=== PATIENT | female | born 1935 | race Caucasian/White ===

== ENCOUNTER 2017-06-27 17:08 | Emergency (ER) | payer OTHER ==
[~2017-06-27] VITALS: Ht 170.2 cm; Wt 101.6 kg
[~2017-06-27 17:08] MED LIST: AMIODARONE HCL200 MG PO; Apixab PO; CEFDINIR300 MG PO; DIGOXIN250 MCG PO; DILTIAZEM 24HR180 MG PO; JANUVIA50 MG PO; LASIX20 MG PO; LOSARTAN POTASS25 MG PO; METOPROLOL SUCC50 MG PO; OMEPRAZOLE40 MG PO
--- OUTSIDE RECORDS SUMMARY | 2017-06-27 17:11 | XMS REPORT ---
Author Author [facility] Address Unknown Phone Unavailable Care Team Providers Care Algologist Name Role Phone FAITH DYSON Unavailable Unavailable Problems This patient has no known problems. Allergies, Adverse Reactions, Alerts This patient has no known allergies or adverse reactions. Medications This patient has no known medications. Results Test Description Test Time Test Comments Text Results Atomic Results Result Comments CT ABDOMEN/PELVIS WO [place] [id number] Patient Name: EITAN SANCHEZ MR #: [id number] : 1935 Age/Sex: 81/F Req #: [id number] Adm Physician: Ordered by: JOHN ALVA VISUAL LEAD Report #: [id number] Location: ER Room/Bed: Procedure: [id number] CT/CT ABDOMEN/PELVIS WO Exam Date: 02/24/17 Exam Time: 1520 REPORT STATUS: Signed EXAM: CT Abdomen and Pelvis WITHOUT contrast INDICATION: Bloody diarrhea. Abdominal pain. Nausea. COMPARISON: None. TECHNIQUE: Abdomen and pelvis were scanned utilizing a multidetector helical scanner from the lung base to the pubic symphysis without administration of IV contrast. Absence of intravenous contrast decreases sensitivity for detection of focal lesions and vascular pathology. Coronal and sagittal reformations were obtained. Routine protocol was performed. IV CONTRAST: None. ORAL CONTRAST: Gastrografin and water mixture. RADIATION DOSE: Total DLP: 791.61 mGy*cm Estimated effective dose: (DLP x 0.015 x size factor) mSv COMPLICATIONS: None FINDINGS: LINES and TUBES: None. LOWER THORAX: Trace volume bilateral pleural effusions associated with bibasilar subsegmental atelectasis. Mild mitral and aortic valve consultations. HEPATOBILIARY: 1.0 cm low-attenuation lesion in the lateral segment of the left hepatic lobe on image 15 series 2 and a BE further characterized due to lack of contrast, however, most likely benign in etiology. No biliary ductal dilation. GALLBLADDER: No radio-opaque stones or sludge. No wall thickening. Note is made of a phrygian cap. SPLEEN: No splenomegaly. PANCREAS: No focal masses or ductal dilatation. ADRENALS: No adrenal nodules KIDNEYS/URETERS: No hydronephrosis. No cystic or solid mass lesions. No stones. GI TRACT: No abnormal distention, wall thickening, or evidence of bowel obstruction. There are a few tiny scattered colonic diverticula without CT evidence of diverticulitis. The appendix is not visualized. PELVIC ORGANS/BLADDER: Status post hysterectomy. Cherry catheter within the decompressed urinary bladder. LYMPH NODES: No lymphadenopathy. VESSELS: Atherosclerotic calcifications of the aorta and iliac arteries without aneurysmal dilatation. PERITONEUM / RETROPERITONEUM: No free air or fluid. BONES: Degenerative changes of the lower thoracic spine. 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 Slight anterolisthesis of L4 in relation to L5 1 without spondylolysis. SOFT TISSUES: Small fat-containing umbilical hernia. IMPRESSION: 1. No acute abdominal pelvic abnormality. 2. Small fat- containing umbilical hernia. 3. Status post hysterectomy. Signed by: Dr. Ginette Handy M.D. on 02/24/2017 5:28 PM Dictated By: DOTTY HANDY MD, MD 27 Transcribed By: SHAWN on 02/24/171727 COPY TO: JOHN ALVA VISUAL LEAD CHEST SINGLE (PORTABLE) [place] [address] Patient Name: EITAN SANCHEZ MR #: [id number] : 1935 Age/Sex: 81/F Req #: [id number] Adm Physician: Ordered by: FAITH DYSON MD Report #: [id number] Location: ER Room/Bed: Procedure: [id number] DX/CHEST SINGLE (PORTABLE) Exam Date: 02/24/17 Exam Time: 1330 REPORT STATUS: Signed PROCEDURE: A single AP view of the chest. COMPARISON: Patients [facility], DX, CHEST SINGLE (PORTABLE), 02/27/2016, 12:45. INDICATIONS: BLOOD IN STOOL, BRIGHT RED FINDINGS: Lines/tubes: None. Lungs: The mild diffuse coarsening of the pulmonary interstitium bilaterally. Mild prominence of the pulmonary vascular tree may be part related to portable technique. There is no evidence of pneumonia or pulmonary edema. Pleura : There is no pleural effusion or pneumothorax. Heart and mediastinum: The cardiac silhouette is moderately enlarged. Calcifications of the aortic arch. Post traumatic deformity of the proximal left humerus and glenohumeral join is stable. Bones: No acute bony abnormality. IMPRESSION: 1. Cardiomegaly. No pulmonary edema. Ginette Handy M.D. Dictated by: Ginette Handy M.D. on 02/24/2017 at 14:11 Electronically approved by: Ginette Handy M.D. on 02/24/2017 at 14: 11 Dictated By: DOTTY HANDY MD, MD 10 Transcribed By: VLADIMIR on 02/24/171410 COPY TO: FAITH DYSON MD
[2017-06-27] MEDS ORDERED: HYDROCODONE/APAP 5MG-325MG TAB PO ONE (17:30)
--- NOTE | 2017-06-27 18:13 | Diagnostic Imaging Report ---
Exams: Head and cervical spine CTs without IV contrast History: Fall, pain Comparison studies: None Technique: Axial images were obtained from the brain and cervical spine. Coronal and sagittal images reconstructed from the axial data. Intravenous contrast: None Findings: Head CT: Scalp: No abnormalities. Bones: No fractures, blastic or lytic lesions. Extra-axial spaces: No masses. No fluid collections. Brain sulci: Mildly prominent Ventricles: Mild compensatory dilatation. No hydrocephalus. Parenchyma: No mass, acute hemorrhage or acute cortical vascular insults. Confluent hypodensity throughout the supratentorial white matter is nonspecific but most compatible with chronic small vessel ischemic changes. Small chronic lacunar infarct in the right globe is pallidus. Sellar/suprasellar region: No abnormalities. Craniocervical junction: The foramen magnum is patent. No Chiari one malformation. Cervical spine CT: Fractures: None. Soft tissues: No gross acute abnormalities. Atlantoaxial articulation: Intact. Alignment: Mild anterolisthesis of C4 on C5 is most likely degenerative in etiology. No additional subluxations. Cervicomedullary junction: No abnormalities. The foramen magnum is patent. Vertebrae: No infection or neoplasm. Degenerative changes: Moderately degenerated C5-C6 and C6-C7 discs with disc osteophyte complexes which indent the thecal sac and result in mild canal stenosis at C5-C6. Multilevel advanced facet arthrosis, worse/severe on the left at C3-C4 and at C4-C5. Multilevel foraminal stenosis due to uncovertebral and facet arthrosis (moderate left and mild right at C3-C4, severe left and mild right C4-C5 moderate bilaterally at C5-C6 and mild bilaterally at C6-C7). Incidental findings: * Right lens replacement related to previous cataract surgery. * Calcified intracranial atherosclerosis with hard plaque in the cervical carotid bulbs as well as within the carotid siphons and intradural V4 segments of the vertebral arteries. * Enlarged nodular thyroid gland. Recommend correlation with thyroid function testing. Thyroid ultrasound may further evaluate as clinically warranted. IMPRESSION: Head CT: 1. No acute abnormalities. 2. Mild generalized volume loss. 3. Moderate chronic microvascular ischemic changes. 4. Chronic lacunar infarct in the right globus pallidus. Cervical spine CT: 1. No cervical spine fracture or acute subluxations. 2. Degenerative changes as described. 3. Incidental findings as described. 4. Cannot adequately evaluate ligament, spinal cord and or vascular abnormalities on the basis of this examination. Signed by: Dr. Favian Sethi M.D. on 06/27/2017 6:10 PM
--- NOTE | 2017-06-27 18:44 | Diagnostic Imaging Report ---
EXAM: CT Chest WITHOUT contrast INDICATION: \S\r/o fx \[id number] \S\1730 COMPARISON: None TECHNIQUE: Chest was scanned utilizing a multidetector helical scanner from the lung apex through the level of the adrenal glands without administration of IV contrast. Absence of intravenous contrast decreases sensitivity for detection of lymphadenopathy and vascular pathology. Coronal and sagittal reformations were obtained. Routine protocol was performed. IV CONTRAST: None COMPLICATIONS: None RADIATION DOSE: Total DLP: 596.43 mGy*cm Estimated effective dose: (DLP x 0.014 x size factor) mSv CTDIvol has been reviewed. It is below the limits set by the Radiation Protocol Committee (RPC). FINDINGS: LINES/ TUBES: None. LUNGS AND AIRWAYS: The lungs are unremarkable. Airways are normal. PLEURA: Small right and possible trace left pleural effusions. HEART AND MEDIASTINUM: Enlarged thyroid gland with hyperdense right inferior pole nodule. No mediastinal, hilar or axillary lymphadenopathy. The heart is enlarged. There is no pericardial effusion. Main pulmonary artery measures 3.3 cm, suggestive of pulmonary hypertension. Atherosclerotic calcification of coronary arteries, aortic valve, and mitral valve. UPPER ABDOMEN: Hyperdense liver. Left hepatic lobe hypodensity. BONES: Degenerative changes of thoracic spine. No evidence of displaced rib fracture. Severe degenerative changes of left glenohumeral joint with deformity of left humeral head. SOFT TISSUES: Unremarkable. IMPRESSION: No evidence of displaced rib fracture. Small right and possible trace left pleural effusions with adjacent compressive atelectasis. Enlarged heterogeneous thyroid gland can be further evaluated with nonurgent thyroid ultrasound. Cardiomegaly. Signed by: Dr. Haider Terry MD on 06/27/2017 6:40 PM
[2017-06-27 18:50] VITALS: BP 169/65
== END 2017-06-27 19:05 | disposition home or self-care (01) ==
LOC: ER 17:08
DX: G89.11 Acute pain due to trauma (principal); S00.83XA Contusion of other part of head, initial encounter; M54.6 Pain in thoracic spine; S23.3XXA Sprain of ligaments of thoracic spine, initial encounter; W07.XXXA Fall from chair, initial encounter; Y92.488 Other paved roadways as the place of occurrence of the external cause; E11.9 Type 2 diabetes mellitus without complications; N28.9 Disorder of kidney and ureter, unspecified; I48.91 Unspecified atrial fibrillation; I50.9 Heart failure, unspecified
CPT/HCPCS: 70450; 71250; 72125; 99284

== ENCOUNTER 2017-06-29 08:26 | Observation (INO) | payer OTHER ==
[~2017-06-29] VITALS: Ht 170.2 cm; Wt 102.6 kg
--- OUTSIDE RECORDS SUMMARY | 2017-06-29 08:29 | XMS REPORT | Continuity of Care Document ---
Author Author [facility] Organization [facility] Address [address] [place] [address] Phone Unavailable Care Team Providers Care Grain Farmer Name Role Phone SUSAN RIDLEY MD PCP Insurance Providers Guarantor Abby Sanchez Address [address] [place] [address] Payer [facility] [employer] Policy Number [id number] Subscriber's Name Abby Sanchez Relationship 18 Self / Same As Patient Group Number [id number] Group Name [employer] - Medicare Advantage Divis Effective Date 17 Advance Directives Directive Response Recorded Date/Time Does the patient have an advance directive? No 02/24/17 11:56pm If yes, is advance directive on file with [facility]? No 02/24/17 11:56pm If not on file with [facility] will patient provide a copy? No 02/24/17 11:56pm Do you have a Directive to Physician? No 06/27/17 6:58pm Do you have a Medical Power of Advertising Specialist? No 06/27/17 6:58pm Do you have an out of hospital Do Not Resuscitate Order? No 06/27/17 6:58pm Do you have any special needs we should be aware of? No 06/27/17 6:58pm Do you have a support person here with you today? Yes 06/27/17 6:58pm Did patient receive Notice of Privacy Practices? Yes 06/27/17 6:58pm Did patient receive patient rights and responsibilities? Yes 06/27/17 6:58pm Problems Medical Problem Onset Date Status CHF (congestive heart failure) Unknown Dehydration Unknown UTI (urinary tract infection) Unknown Medications Current Home Medications Medication Dose Units Route Directions Days Qty Instructions Start Date Amiodarone Hcl 200 Mg Tablet 200 Mg Oral Twice A Day Apixab 2.5 Mg Tablet 2.5 Mg Oral Twice A Day 30 Days 60 01/25/16 Diltiazem Hcl (Diltiazem 24HR Er) 180 Mg Capcr 240 Mg Oral Daily Furosemide (Lasix) 20 Mg Tablet 20 Mg Oral Daily 30 Tab Sitagliptin Phosphate (Januvia) 50 Mg Tablet 50 Mg Oral Daily Past Home Medications Medication Directions Ordered Status Cefdinir (Omnicef) 300 Mg Capsule, 1 Cap Oral Twice A Day 03/01/16 Discontinued Cefdinir (Omnicef) 300 Mg Capsule, 300 Mg Oral Twice A Day 01/25/16 Discontinued Digoxin 250 Mcg Tablet, 250 Mcg Oral Daily Discontinued Losartan Potassium 25 Mg Tablet, 50 Mg Oral Daily Discontinued Metoprolol Succinate 50 Mg Tab.er.24h, 50 Mg Oral Three Times A Day Discontinued Metoprolol Succinate 50 Mg Tab.er.24h, 100 Mg Oral Daily 01/25/16 Discontinued Metoprolol Succinate 50 Mg Tab.er.24h, 50 Mg Oral Daily Discontinued Omeprazole 40 Mg Capsule.dr, 40 Mg Oral Daily 01/25/16 Discontinued Social History Social History Problem Response Recorded Date/Time Onset Date Status Hx Psychiatric Problems No 02/24/2017 11:56pm Not Applicable Not Applicable Hx Eating Disorder No 02/24/2017 11:56pm Not Applicable Not Applicable Hx Substance Use Disorder No 02/24/2017 11:56pm Not Applicable Not Applicable Hx Depression No 02/24/2017 11:56pm Not Applicable Not Applicable Hx Alcohol Use No 02/24/2017 11:56pm Not Applicable Not Applicable Hx Substance Use Treatment No 02/24/2017 11:56pm Not Applicable Not Applicable Hx Physical Abuse No 02/24/2017 11:56pm Not Applicable Not Applicable Smoking Status Start Date Stop Date Never Smoker Hospital Discharge Instructions No hospital discharge instruction information available. Plan of Care Discharge Date 06/27/17 7:05pm Disposition HOME, SELF-CARE Condition at Discharge Stable Instructions/Education Provided Back Pain Forms Provided Work/School Excuse Prescriptions See Medication Section Referrals SUSAN RIDLEY MD Address: [address] [place] [address] YVON MITCHELL MD Address: [address] [place] [address] [address] [place] [address] Additional Instructions/Education 1. follow up with your doctor in 1-2 days without fail 2. return to ed as needed 3. tylenol and motrin as needed for pain Functional Status No functional status information available. Allergies, Adverse Reactions, Alerts Allergen Type Severity Reaction Status Last Updated No Known Drug Allergies Allergy Mild Active 06/27/17 Immunizations No immunization information available. Vital Signs Acute Vital Signs Vital Response Date/Time Temperature (Fahrenheit) 98.0 degrees F (97.6 - 99.5) 06/27/2017 6:50pm Pulse Pulse Rate (adult) 72 bpm (60 - 90) 06/27/2017 6:50pm Respiratory Rate 15 bpm (12 - 24) 06/27/2017 6:50pm Blood Pressure 169/65 mm Hg 06/27/2017 6:50pm Height 5 ft 7 in 06/27/2017 5:20pm Weight 224 lb 06/27/2017 5:20pm Body Mass Index 35.1 kg/m^2 06/27/2017 5:20pm Results Laboratory Results Test Name Result Units Flags Reference Collection Date/Time Result Date/ Time Comments White Blood Count 6.91 x10e3/uL 4.8-10.8 02/25/2017 6:00am 02/25/2017 6 :56am Red Blood Count 3.14 x10e6/uL L 3.6-5.1 02/25/2017 6:00am 02/25/2017 6: 56am Hemoglobin 9.3 g/dL L 12.0-16.0 02/25/2017 6:00am 02/25/2017 6:56am Hematocrit 29.7 % L 34.2-44.1 02/25/2017 6:00am 02/25/2017 6:56am Mean Corpuscular Volume 94.6 fL 81-99 02/25/2017 6:00am 02/25/2017 6: 56am Mean Corpuscular Hemoglobin 29.6 pg 28-32 02/25/2017 6:00am 02/25/2017 6:56am Mean Corpuscular Hemoglobin Concent 31.3 g/dL 31-35 02/25/2017 6:00am 02/25/2017 6:56am Red Cell Distribution Width 14.9 % H 11.7-14.4 02/25/2017 6:00am 2016 6:56am Platelet Count 202 x10e3/uL 140-360 02/25/2017 6:00am 02/25/2017 6: 56am Neutrophils (%) (Auto) 68.7 % 38.7-80.0 02/25/2017 6:00am 02/25/2017 6: 56am Lymphocytes (%) (Auto) 18.7 % 18.0-39.1 02/25/2017 6:00am 02/25/2017 6: 56am Monocytes (%) (Auto) 9.3 % 4.4-11.3 02/25/2017 6:00am 02/25/2017 6: 56am Eosinophils (%) (Auto) 2.5 % 0.0-6.0 02/25/2017 6:00am 02/25/2017 6: 56am Basophils (%) (Auto) 0.4 % 0.0-1.0 02/25/2017 6:00am 02/25/2017 6:56am IM GRANULOCYTES % 0.4 % 0.0-1.0 02/25/2017 6:00am 02/25/2017 6:56am Neutrophils # (Auto) 4.8 2.1-6.9 02/25/2017 6:00am 02/25/2017 6:56am Lymphocytes # (Auto) 1.3 1.0-3.2 02/25/2017 6:00am 02/25/2017 6:56am Monocytes # (Auto) 0.6 0.2-0.8 02/25/2017 6:00am 02/25/2017 6:56am Eosinophils # (Auto) 0.2 0.0-0.4 02/25/2017 6:00am 02/25/2017 6:56am Basophils # (Auto) 0.0 0.0-0.1 02/25/2017 6:00am 02/25/2017 6:56am Absolute Immature Granulocyte (auto 0.03 x10e3/uL 0-0.1 02/25/2017 6: 00am 02/25/2017 6:56am Prothrombin Time 14.4 seconds 11.9-14.5 02/24/2017 1:13pm 02/24/2017 1: 58pm Prothromb Time International Ratio 1.06 02/24/2017 1:13pm 2016 1:58pm Oral Anticoagulant Therapy INR Values: 1. Low Intensity Therapy 1.5 - 2.0 2. Moderate Intensity Therapy 2.0 - 3.0 3. High Intensity Therapy(1) 2.5 - 3.5 4. High Intensity Therapy(2) 3.0 - 4.0 5. Panic Value INR > 5.0 Activated Partial Thromboplast Time 31.3 seconds 23.8-35.5 02/24/2017 1: 13pm 02/24/2017 1:58pm Urine Color YELLOW YELLOW 02/24/2017 1:02/24/2017 3:25pm Urine Clarity CLEAR CLEAR 02/24/2017 1:02/24/2017 3:25pm Urine Specific [place] 1.010 1.010-1.025 02/24/2017 1:2016 3:25pm Urine pH 7 5 - 7 02/24/2017 1:02/24/2017 3:25pm Urine Leukocyte Esterase TRACE H NEGATIVE 02/24/2017 1:2016 3:25pm Urine Nitrite NEGATIVE NEGATIVE 02/24/2017 1:02/24/2017 3:25pm Urine Protein 3+ H NEGATIVE 02/24/2017 1:02/24/2017 3:25pm Urine Glucose (UA) NEGATIVE NEGATIVE 02/24/2017 1:02/24/2017 3: 25pm Urine Ketones NEGATIVE NEGATIVE 02/24/2017 1:02/24/2017 3:25pm Urine Urobilinogen 0.2 mg/dL 0.2 - 1 02/24/2017 1:02/24/2017 3: 25pm Urine Bilirubin NEGATIVE NEGATIVE 02/24/2017 1:02/24/2017 3: 25pm Urine Blood NEGATIVE NEGATIVE 02/24/2017 1:02/24/2017 3:25pm Urine WBC 11-20 /HPF H 0-5 02/24/2017 1:1302/24/2017 3:32pm Urine RBC 0-5 /HPF 0-5 02/24/2017 1:02/24/2017 3:32pm Urine Bacteria NONE /HPF NONE 02/24/2017 1:1302/24/2017 3:32pm Urine Epithelial Cells FEW /LPF NONE 02/24/2017 1:02/24/2017 3: 32pm Urine Hyaline Casts 0-1 0-1 02/24/2017 1:02/24/2017 3:32pm Sodium Level 143 mmol/L 136-145 02/25/2017 6:00am 02/25/2017 6:59am Potassium Level 4.2 mmol/L 3.5-5.1 02/25/2017 6:00am 02/25/2017 6:59am Chloride Level 111 mmol/L H 98-107 02/25/2017 6:00am 02/25/2017 6:59am Carbon Dioxide Level 26 mmol/L 22-29 02/25/2017 6:00am 02/25/2017 6: 59am Anion Gap 10.2 mmol/L 8-02/25/2017 6:00am 02/25/2017 6:59am Blood Urea Nitrogen 19 mg/dL 7-02/25/2017 6:00am 02/25/2017 6:59am Creatinine 1.79 mg/dL H 0.57-1.11 02/25/2017 6:00am 02/25/2017 6:59am BUN/Creatinine Ratio 11 6-02/25/2017 6:00am 02/25/2017 6:59am Estimat Glomerular Filtration Rate 27 ML/MIN L 60- 02/25/2017 6:00am 6:59am Ranges were taken from the National Kidney Disease Education Program and the National Kidney Foundation literature. Reference ranges: 60 or greater: Normal 16-59 (for 3 consecutive months): Chronic kidney disease 15 or less: Kidney failure Glucose Level 108 mg/dL 74-118 02/25/2017 6:00am 02/25/2017 6:59am Calcium Level 8.1 mg/dL L 8.4-10.2 02/25/2017 6:00am 02/25/2017 6:59am Bedside Glucose 197 mg/dL H 70-120 02/27/2017 8:33pm 02/27/2017 8:50pm Meter ID: [id number] Hemoglobin A1c Percent 6.2 % 4.0-7.0 02/25/2017 6:00am 02/25/2017 9: 21am Iron Level 35 ug/dL L 50-170 02/25/2017 6:00am 02/25/2017 9:58am Total Iron Binding Capacity 227 ug/dL L 261-478 02/25/2017 6:00am 2016 9:58am Percent Iron Saturation 15 % 15-50 02/25/2017 6:00am 02/25/2017 9:58am Transferrin 162 mg/dL L 180-382 02/25/2017 6:00am 02/25/2017 9:58am Total Bilirubin 0.3 mg/dL 0.2-1.2 02/24/2017 1:13pm 02/24/2017 2:07pm Aspartate Amino Transf (AST/SGOT) 24 IU/L 5-34 02/24/2017 1:2016 2:07pm Alanine Aminotransferase (ALT/SGPT) 22 IU/L 0-55 02/24/2017 1:13pm 2:07pm Total Protein 7.1 g/dL 6.5-8.1 02/24/2017 1:02/24/2017 2:07pm Albumin 3.0 g/dL L 3.5-5.0 02/24/2017 1:02/24/2017 2:07pm Globulin 4.1 g/dL H 2.3-3.5 02/24/2017 1:02/24/2017 2:07pm Albumin/Globulin Ratio 0.7 L 0.8-2.0 02/24/2017 1:02/24/2017 2: 07pm Alkaline Phosphatase 126 IU/L 40-150 02/24/2017 1:02/24/2017 2: 07pm B-Type Natriuretic Peptide 488.6 pg/mL H 0-100 02/24/2017 1:2016 2:22pm Creatine Kinase 28 IU/L L 29-168 02/24/2017 1:02/24/2017 2:07pm Creatine Kinase MB 0.80 ng/mL 0.00-5.00 02/24/2017 1:13pm 02/24/2017 2: 10pm Troponin I 0.025 ng/mL 0-0.300 02/24/2017 1:13pm 02/24/2017 2:10pm Vitamin B12 Level 142 pg/mL L 213-816 02/25/2017 6:00am 02/25/2017 10: 35am Thyroid Stimulating Hormone (TSH) 3.609 uIU/mL 0.350-4.940 02/25/2017 6: 00am 02/25/2017 10:08am Microbiology Results Procedure Source Organism/Result Collection Date/Time Result Date/Time Result Status Urine Culture Urine,Catheterized PROTEUS MIRABILIS 02/24/2017 1:13pm 02/27 8:30am Final Procedures Procedure Status Date Provider(s) EGD BIOPSY SINGLE/MULTIPLE Completed 02/24/[address] of abdomen and pelvis without contrast Active 02/24/17 JOHN ALVA NP Computed tomography of chest without contrast Active 06/27/17 GONZALO BLEVINS NP Computed tomography of cervical spine without contrast Active 06/27/17 GONZALO BLEVINS NP Computed tomography of brain without radiopaque contrast Active 06/27/17 GONZALO BLEVINS NP Encounters Encounter Location Arrival/Admit Date Discharge/Depart Date Attending Provider Departed Emergency Room [facility] 06/27/17 5:08pm 7:05pm FAITH DYSON MD Discharged Inpatient (obs) [facility] 02/24/17 7:41pm 10:00pm TANYA AMBROCIO MD
[2017-06-29] MEDS ORDERED: NYSTATIN 15 GM POWDER UD BTL TOP PRN (09:15)
[2017-06-29 09:20] LABS: BASOPHILS # (AUTO) 0.1 (0.0-0.1); BASOPHILS % 0.5 % (0.0-1.0); EOSINOPHILS # (AUTO) 0.2 (0.0-0.4); EOSINOPHILS % 2.1 % (0.0-6.0); HEMATOCRIT 33.9 % (34.2-44.1); HEMOGLOBIN 10.7 g/dL (12.0-16.0); LYMPHOCYTES # (AUTO) 1.4 (1.0-3.2); LYMPHOCYTES % 15.1 % (18.0-39.1); MEAN CORPUSCULAR HEMOGLOBIN 29.2 pg (28-32); MEAN CORPUSCULAR HGB CONC 31.6 g/dL (31-35); MEAN CORPUSCULAR VOLUME 92.6 fL (81-99); MONOCYTES # (AUTO) 0.8 (0.2-0.8); MONOCYTES % 8.7 % (4.4-11.3); NEUTROPHILS # (AUTO) 6.7 (2.1-6.9); NEUTROPHILS % 73.3 % (38.7-80.0); PLATELET COUNT 242 x10e3/uL (140-360); RED BLOOD COUNT 3.66 x10e6/uL (3.6-5.1)
[2017-06-29 09:21] LABS: BILIRUBIN,URINE NEGATIVE (NEGATIVE); KETONES,URINE NEGATIVE (NEGATIVE); LEUKOCYTE ESTERASE ,URINE TRACE (NEGATIVE); PROTEIN,URINE DIPSTICK 3+ (NEGATIVE); URINE UROBILINOGEN 0.2 mg/dL (0.2 - 1)
[2017-06-29 09:22] LABS: CLARITY,URINE CLOUDY (CLEAR); COLOR,URINE YELLOW (YELLOW); NITRITE,URINE POSITIVE (NEGATIVE)
[2017-06-29 09:25] LABS: INR 1.21; PARTIAL THROMBOPLASTIN TIME 32.1 seconds (23.8-35.5); PROTHROMBIN TIME 14.4 seconds (11.9-14.5)
[2017-06-29 09:34] LABS: ALBUMIN 2.7 g/dL (3.5-5.0); ALBUMIN/GLOBULIN RATIO 0.6 (0.8-2.0); CALCIUM 8.9 mg/dL (8.4-10.2); CREATININE, SERUM 2.01 mg/dL (0.57-1.11)
[2017-06-29 09:40] LABS: CREATINE KINASE MB 1.1 ng/mL (0-5.0)
[2017-06-29 09:41] LABS: BACTERIA,URINE MODERATE /HPF; EPITHELIAL CELLS,URINE RARE /LPF; RBC,URINE 0-5 /HPF (0-5)
[2017-06-29] MEDS ORDERED: KETOROLAC TROMETHAMINE 30 MG/ML VIAL IV STA (09:50)
[2017-06-29] MEDS ORDERED: FLUCONAZOLE 200 MG/100 ML 100 ML IV ONE (10:00)
[2017-06-29] MEDS ORDERED: CEFTRIAXONE SOD 1 GM VIAL IV ONE (11:00)
[2017-06-29] MEDS ORDERED: ONDANSETRON HCL INJ 2 MG/ML VIAL ONE (11:13)
[2017-06-29] MEDS ORDERED: METOCLOPRAMIDE HCL 10 MG/2ML VIAL IV ONE (11:15)
[2017-06-29] MEDS ORDERED: ONDANSETRON HCL INJ 2 MG/ML VIAL IV STA (11:20)
--- NOTE | 2017-06-29 11:23 | Diagnostic Imaging Report ---
PROCEDURE:THORACIC SP 3V COMPARISON:None. INDICATIONS:FELL ON BACK ONTO CONCRETE FINDINGS:No acute displaced fracture or dislocation. No degenerative changes or evidence by diffuse osteophytosis. The disc spaces are well-maintained. CONCLUSION:No acute radiographic abnormality. Dictated by: Selwyn Hernandez M.D. on 06/29/2017 at 11:23 Electronically approved by: Selwyn Hernandez M.D. on 06/29/2017 at 11:23
--- NOTE | 2017-06-29 11:25 | Diagnostic Imaging Report ---
PROCEDURE:L-SPINE COMPLETE COMPARISON:None. INDICATIONS:FELL ON BACK ONTO CONCRETE FINDINGS: There are 5 lumbar-type vertebral bodies. The vertebral bodies are well-aligned without evidence of spondylolisthesis. There are no fractures, lytic or blastic lesions. Degenerative changes evidenced by anterior osteophytosis at multiple levels. Bilateral facet hypertrophy is present at L4/L5 and L5/S1. The disc-space heights are well-maintained. The sacroiliac joints are unremarkable. CONCLUSION: No acute radiographic abnormality. Degenerative changes as above. Dictated by: Selwyn Hernandez M.D. on 06/29/2017 at 11:25 Electronically approved by: Selwyn Hernandez M.D. on 06/29/2017 at 11:25
--- NOTE | 2017-06-29 11:34 | Diagnostic Imaging Report ---
PROCEDURE:X-RAY UNILATERAL RIBS WITH CHEST X-RAY COMPARISON:CT chest 06/27/2017. INDICATIONS:FELL ON BACK ONTO CONCRETE FINDINGS: Lungs: Bibasilar atelectasis. No focal consolidation. No parenchymal mass. Pleura: Small right pleural effusion. No pneumothorax. Mediastinum: Normal cardiomediastinal silhouette. Atherosclerotic calcifications. Bones: Degenerative changes of the thoracic spine. Remote trauma of the proximal left humerus. No rib fracture is visualized. Soft tissues: Normal CONCLUSION: No acute radiographic abnormality. No rib fracture. Small right pleural effusion. Dictated by: Selwyn Hernandez M.D. on 06/29/2017 at 11:35 Electronically approved by: Selwyn Hernandez M.D. on 06/29/2017 at 11:35
[2017-06-29] MEDS ORDERED: MORPHINE SULFATE 2 MG/ML SYR IV PRN (11:50)
--- NOTE | 2017-06-29 12:01 | Diagnostic Imaging Report ---
PROCEDURE:X-RAY RIGHT HUMERUS, TWO OR MORE VIEWS COMPARISON:None. INDICATIONS:Pain. Fall. FINDINGS: There are no fractures, dislocations, lytic or blastic lesions. The bones are well-mineralized. The soft-tissues are unremarkable. CONCLUSION: No acute radiographic abnormality. Dictated by: Selwyn Hernandez M.D. on 06/29/2017 at 12:01 Electronically approved by: Selwyn Hernandez M.D. on 06/29/2017 at 12:01
[2017-06-29] MEDS: NYSTATIN 15 GM POWDER UD BTL TOP SCH (16:44)
[2017-06-29] MEDS: SODIUM CHLORIDE FLUSH 10 ML SYR INJ PRN (16:44)
[2017-06-29 23:22] VITALS: BP 113/96
[2017-06-30] VITALS (8 sets, daily range): BP systolic 157–196; BP diastolic 56–85
[2017-06-30 07:03] LABS: ANION GAP 10.6 mmol/L (8-16); CALCIUM 8.3 mg/dL (8.4-10.2); CREATININE, SERUM 2.33 mg/dL (0.57-1.11); POTASSIUM 4.6 mmol/L (3.5-5.1)
[2017-06-30 07:29] LABS: BASOPHILS % 0.4 % (0.0-1.0); EOSINOPHILS # (AUTO) 0.2 (0.0-0.4); EOSINOPHILS % 2.5 % (0.0-6.0); HEMATOCRIT 28.9 % (34.2-44.1); HEMOGLOBIN 8.9 g/dL (12.0-16.0); LYMPHOCYTES % 14.8 % (18.0-39.1); MEAN CORPUSCULAR HEMOGLOBIN 29.1 pg (28-32); MEAN CORPUSCULAR HGB CONC 30.8 g/dL (31-35); MEAN CORPUSCULAR VOLUME 94.4 fL (81-99); MONOCYTES # (AUTO) 0.7 (0.2-0.8); MONOCYTES % 9.9 % (4.4-11.3); NEUTROPHILS # (AUTO) 4.9 (2.1-6.9); NEUTROPHILS % 71.7 % (38.7-80.0); PLATELET COUNT 206 x10e3/uL (140-360); RED BLOOD COUNT 3.06 x10e6/uL (3.6-5.1); RED CELL DISTRIBUTION WIDTH 15.2 % (11.7-14.4)
[2017-06-30] MEDS: NYSTATIN 15 GM POWDER UD BTL TOP SCH ×2 (08:36→16:02)
[2017-06-30] MEDS: SODIUM CHLORIDE FLUSH 10 ML SYR INJ PRN (08:36)
[2017-06-30] MEDS ORDERED: CEPHALEXIN 500 MG CAP PO SCH (09:30)
[2017-06-30] MEDS: DILTIAZEM HCL 120 MG CAP CD PO SCH (10:16)
[2017-06-30] MEDS: CEPHALEXIN 500 MG CAP PO SCH ×3 (10:17→21:17)
[2017-06-30] MEDS ORDERED: FLUCONAZOLE 100 MG TAB PO NR (10:30)
[2017-06-30] MEDS ORDERED: HYDROCODONE/APAP 7.5MG-325MG 1 EA TAB PO PRN (11:15)
[2017-06-30] MEDS ORDERED: ONDANSETRON HCL 4 MG ORAL DISINTEGRATING TAB PO ONE (15:15)
[2017-06-30] MEDS ORDERED: HYDRALAZINE HCL 25 MG TAB PO PRN (15:15)
[2017-06-30] MEDS: APIXAB 2.5 MG TABLET PO SCH (16:02)
[2017-06-30] MEDS: AMIODARONE HCL 200 MG TAB PO SCH (16:02)
[2017-06-30] MEDS ORDERED: [UNRECOGNIZED DRUG - OTHER] PO SCH (17:00)
[2017-07-01] VITALS (7 sets, daily range): BP systolic 132–172; BP diastolic 58–99
[2017-07-01] MEDS: CEPHALEXIN 500 MG CAP PO SCH ×2 (05:06→15:20)
[2017-07-01] MEDS: ONDANSETRON HCL 4 MG ORAL DISINTEGRATING TAB PO PRN ×2 (08:20→15:40)
[2017-07-01] MEDS: NYSTATIN 15 GM POWDER UD BTL TOP SCH ×2 (08:27→16:34)
[2017-07-01] MEDS: AMIODARONE HCL 200 MG TAB PO SCH ×2 (08:27→16:34)
[2017-07-01] MEDS: APIXAB 2.5 MG TABLET PO SCH ×2 (08:27→16:34)
[2017-07-01] MEDS: DILTIAZEM HCL 120 MG CAP CD PO SCH (08:27)
[2017-07-01] MEDS ORDERED: SITAGLIPTIN 100 MG TAB PO SCH (09:00)
[2017-07-01] MEDS ORDERED: DILTIAZEM HCL 180 MG CAP CD PO SCH (09:00)
[2017-07-01] MEDS ORDERED: FLUCONAZOLE 100 MG TAB PO SCH (09:00)
[2017-07-01] MEDS ORDERED: NON-FORMULARY MEDICATION (Sitagliptin Phosphate (Januvia) 50 MG) PO SCH (09:00)
[2017-07-01] MEDS ORDERED: FUROSEMIDE 20 MG TAB PO SCH (09:00)
== END 2017-07-01 19:28 | disposition home or self-care (01) ==
LOC: ER 08:26 → ERHOLD 11:45 → IMCU 22:17
PROVIDERS: ADMIT Internal Medicine; ATTEND Internal Medicine
DX: M79.1 Myalgia (principal); M54.89 Other dorsalgia; N30.01 Acute cystitis with hematuria; E11.65 Type 2 diabetes mellitus with hyperglycemia; L30.4 Erythema intertrigo; W05.0XXA Fall from non-moving wheelchair, initial encounter; B37.2 Candidiasis of skin and nail
CPT/HCPCS: 36415 ×3; 51700; 71101; 72072; 72110; 73060; 80048; 80053; 81001; 82550; 82553; 82948 ×3; 83036; 84484; 85025 ×2; 85610; 85730; 93005; 97139; 97162; 97530 ×2; 99284; G0378 ×3; J0696; J1450; J1885; J2270; J2405

== ENCOUNTER 2017-07-29 10:49 | Observation (INO) | payer OTHER ==
[~2017-07-29] VITALS: Ht 170.2 cm; Wt 98.9 kg
--- OUTSIDE RECORDS SUMMARY | 2017-07-29 10:53 | XMS REPORT | Continuity of Care Document ---
Author Author [facility] Organization [facility] Address [address] [address] Phone Unavailable Care Team Providers Care Slate Handler Name Role Phone SUSAN RIDLEY MD PCP Insurance Providers Guarantor ChasityhéctorAbby Soledad Address [address] [place] [address] Email PT DECLINED Payer [facility] Tomo Clases Policy Number [id number] Subscriber's Name Abby Mixon Soledad Relationship 18 Self / Same As Patient Group Number [id number] Group Name [employer] - Medicare Advantage Divis Effective Date 17 Advance Directives Directive Response Recorded Date/Time Does the patient have an advance directive? No 06/29/17 11:15pm If yes, is advance directive on file with [facility]? No 06/29/17 11:15pm If not on file with [facility] will patient provide a copy? No 06/29/17 11:15pm Do you have a Directive to Physician? No 06/29/17 9:39am Do you have a Medical Power of Chairman And Ceo? No 06/29/17 9:39am Do you have an out of hospital Do Not Resuscitate Order? No 06/29/17 9:39am Do you have any special needs we should be aware of? No 06/29/17 9:39am Do you have a support person here with you today? Yes 06/29/17 9:39am Did patient receive Notice of Privacy Practices? Yes 06/29/17 9:39am Did patient receive patient rights and responsibilities? Yes 06/29/17 9:39am Problems Medical Problem Onset Date Status CHF (congestive heart failure) Unknown Dehydration Unknown Intertrigo Unknown UTI (urinary tract infection) Unknown Medications [...] Onset Date Status Hx Psychiatric Problems No 06/29/2017 11:15pm Not Applicable Not Applicable Hx Eating Disorder No 06/29/2017 11:15pm Not Applicable Not Applicable Hx Substance Use Disorder No 06/29/2017 11:15pm Not Applicable Not Applicable Hx Depression No 06/29/2017 11:15pm Not Applicable Not Applicable Hx Alcohol Use No 06/29/2017 11:15pm Not Applicable Not Applicable Hx Substance Use Treatment No 06/29/2017 11:15pm Not Applicable Not Applicable Hx Physical Abuse No 06/29/2017 11:15pm Not Applicable Not Applicable Smoking Status Start Date Stop Date Never Smoker Hospital Discharge Instructions No hospital discharge instruction information available. Plan of Care Discharge Date 07/01/17 7:28pm Disposition HOME, SELF-CARE Instructions/Education Provided Urinary Tract Infection - Women Prescriptions See Medication Section Additional Instructions/Education FOLLOW UP WITH PCP IN 1 WEEK Functional Status Query Response Date Recorded FUNCTIONAL STATUS . June 30, 2017 11:33am Assistive Devices Standard Walker June 29, 2017 11:22pm Ambulation Ability Moderate Assistance June 29, 2017 11:22pm Toileting Ability Minimum Assistance July 01, 2017 6:26pm Allergies, Adverse Reactions, Alerts Allergen Type Severity Reaction Status Last Updated No Known Drug Allergies Allergy Mild Active 06/27/17 Immunizations No immunization information available. Vital Signs Acute Vital Signs Vital Response Date/Time Temperature (Fahrenheit) 96.8 degrees F (97.6 - 99.5) 07/01/2017 6:55pm Pulse Pulse Rate (adult) 68 bpm (60 - 90) 07/01/2017 6:55pm Respiratory Rate 16 bpm (12 - 24) 07/01/2017 6:55pm Blood Pressure 156/70 mm Hg 07/01/2017 6:55pm Height 5 ft 7 in 06/29/2017 8:32am Weight 226.25 lb 07/01/2017 12:29am Body Mass Index 35.4 kg/m^2 07/01/2017 12:29am Results Laboratory Results Test Name Result Units Flags Reference Collection Date/Time Result Date/ Time Comments Urine Hyaline Casts 0-1 0-1 02/24/2017 1:13pm 02/24/2017 3:32pm Iron Level 35 ug/dL L 50-170 02/25/2017 6:00am 02/25/2017 9:58am Total Iron Binding Capacity 227 ug/dL L 261-478 02/25/2017 6:00am 2016 9:58am Percent Iron Saturation 15 % 15-50 02/25/2017 6:00am 02/25/2017 9:58am Transferrin 162 mg/dL L 180-382 02/25/2017 6:00am 02/25/2017 9:58am B-Type Natriuretic Peptide 488.6 pg/mL H 0-100 02/24/2017 1:13pm 2016 2:22pm Vitamin B12 Level 142 pg/mL L 213-816 02/25/2017 6:00am 02/25/2017 10: 35am Thyroid Stimulating Hormone (TSH) 3.609 uIU/mL 0.350-4.940 02/25/2017 6: 00am 02/25/2017 10:08am White Blood Count 6.84 x10e3/uL 4.8-10.8 06/30/2017 7:06/30/2017 7 :44am Red Blood Count 3.06 x10e6/uL L 3.6-5.1 06/30/2017 7:06/30/2017 7: 44am Hemoglobin 8.9 g/dL L 12.0-16.0 06/30/2017 7:06/30/2017 7:44am Hematocrit 28.9 % L 34.2-44.1 06/30/2017 7:06/30/2017 7:44am Mean Corpuscular Volume 94.4 fL 81-99 06/30/2017 7:06/30/2017 7: 44am Mean Corpuscular Hemoglobin 29.1 pg 28-32 06/30/2017 7:06/30/2017 7:44am Mean Corpuscular Hemoglobin Concent 30.8 g/dL L 31-35 06/30/2017 7:06/30/2017 7:44am Red Cell Distribution Width 15.2 % H 11.7-14.4 06/30/2017 7:2017 7:44am Platelet Count 206 x10e3/uL 140-360 06/30/2017 7:06/30/2017 7: 44am Neutrophils (%) (Auto) 71.7 % 38.7-80.0 06/30/2017 7:06/30/2017 7: 44am Lymphocytes (%) (Auto) 14.8 % L 18.0-39.1 06/30/2017 7:06/30/2017 7 :44am Monocytes (%) (Auto) 9.9 % 4.4-11.3 06/30/2017 7:06/30/2017 7: 44am Eosinophils (%) (Auto) 2.5 % 0.0-6.0 06/30/2017 7:06/30/2017 7: 44am Basophils (%) (Auto) 0.4 % 0.0-1.0 06/30/2017 7:06/30/2017 7:44am IM GRANULOCYTES % 0.7 % 0.0-1.0 06/30/2017 7:06/30/2017 7:44am Neutrophils # (Auto) 4.9 2.1-6.9 06/30/2017 7:06/30/2017 7:44am Lymphocytes # (Auto) 1.0 1.0-3.2 06/30/2017 7:06/30/2017 7:44am Monocytes # (Auto) 0.7 0.2-0.8 06/30/2017 7:06/30/2017 7:44am Eosinophils # (Auto) 0.2 0.0-0.4 06/30/2017 7:06/30/2017 7:44am Basophils # (Auto) 0.0 0.0-0.1 06/30/2017 7:06/30/2017 7:44am Absolute Immature Granulocyte (auto 0.05 x10e3/uL 0-0.1 06/30/2017 7: 06/30/2017 7:44am Prothrombin Time 14.4 seconds 11.9-14.5 06/29/2017 9:04am 06/29/2017 9: 26am Prothromb Time International Ratio 1.21 06/29/2017 9:04am 2017 9:26am Oral Anticoagulant Therapy INR Values: 1. Low Intensity Therapy 1.5 - 2.0 2. Moderate Intensity Therapy 2.0 - 3.0 3. High Intensity Therapy(1) 2.5 - 3.5 4. High Intensity Therapy(2) 3.0 - 4.0 5. Panic Value INR > 5.0 Activated Partial Thromboplast Time 32.1 seconds 23.8-35.5 06/29/2017 9: 04am 06/29/2017 9:26am Urine Color YELLOW YELLOW 06/29/2017 9:04am 06/29/2017 9:22am Urine Clarity CLOUDY H CLEAR 06/29/2017 9:04am 06/29/2017 9:22am Urine Specific [place] 1.015 1.010-1.025 06/29/2017 9:04am 2017 9:22am Urine pH 6.5 5 - 7 06/29/2017 9:04am 06/29/2017 9:22am Urine Leukocyte Esterase TRACE H NEGATIVE 06/29/2017 9:04am 2017 9:22am Urine Nitrite POSITIVE H NEGATIVE 06/29/2017 9:04am 06/29/2017 9:22am Urine Protein 3+ H NEGATIVE 06/29/2017 9:04am 06/29/2017 9:22am Urine Glucose (UA) NEGATIVE NEGATIVE 06/29/2017 9:04am 06/29/2017 9: 22am Urine Ketones NEGATIVE NEGATIVE 06/29/2017 9:04am 06/29/2017 9:22am Urine Urobilinogen 0.2 mg/dL 0.2 - 1 06/29/2017 9:04am 06/29/2017 9: 22am Urine Bilirubin NEGATIVE NEGATIVE 06/29/2017 9:04am 06/29/2017 9: 22am Urine Blood TRACE H NEGATIVE 06/29/2017 9:04am 06/29/2017 9:22am Urine WBC 6-10 /HPF H 0-5 06/29/2017 9:04am 06/29/2017 9:42am Urine RBC 0-5 /HPF 0-5 06/29/2017 9:04am 06/29/2017 9:42am Urine Bacteria MODERATE /HPF H NONE 06/29/2017 9:04am 06/29/2017 9:42am Urine Epithelial Cells RARE /LPF NONE 06/29/2017 9:04am 06/29/2017 9: 42am Sodium Level 142 mmol/L 136-145 06/30/2017 5:55am 06/30/2017 7:08am Potassium Level 4.6 mmol/L 3.5-5.1 06/30/2017 5:55am 06/30/2017 7:08am Chloride Level 108 mmol/L H 98-107 06/30/2017 5:55am 06/30/2017 7:08am Carbon Dioxide Level 28 mmol/L 22-29 06/30/2017 5:55am 06/30/2017 7: 08am Anion Gap 10.6 mmol/L 8-16 06/30/2017 5:55am 06/30/2017 7:08am Blood Urea Nitrogen 34 mg/dL H 7-26 06/30/2017 5:55am 06/30/2017 7:08am Creatinine 2.33 mg/dL H 0.57-1.11 06/30/2017 5:55am 06/30/2017 7:08am BUN/Creatinine Ratio 15 6-25 06/30/2017 5:55am 06/30/2017 7:08am Estimat Glomerular Filtration Rate 20 ML/MIN L 60- 06/30/2017 5:55am 7:08am Ranges were taken from the National Kidney Disease Education Program and the National Kidney Foundation literature. Reference ranges: 60 or greater: Normal 16-59 (for 3 consecutive months): Chronic kidney disease 15 or less: Kidney failure Glucose Level 104 mg/dL 74-118 06/30/2017 5:55am 06/30/2017 7:08am Calcium Level 8.3 mg/dL L 8.4-10.2 06/30/2017 5:55am 06/30/2017 7:08am Bedside Glucose 229 mg/dL H 70-120 07/01/2017 6:55pm 07/01/2017 7:30pm Meter ID: [id number] Hemoglobin A1c Percent 5.8 % 4.0-7.0 06/29/2017 9:04am 06/29/2017 12: 03pm Total Bilirubin 0.5 mg/dL 0.2-1.2 06/29/2017 9:04am 06/29/2017 9:41am Aspartate Amino Transf (AST/SGOT) 17 IU/L 5-34 06/29/2017 9:04am 2017 9:41am Alanine Aminotransferase (ALT/SGPT) 19 IU/L 0-55 06/29/2017 9:04am 9:41am Total Protein 7.0 g/dL 6.5-8.1 06/29/2017 9:04am 06/29/2017 9:41am Albumin 2.7 g/dL L 3.5-5.0 06/29/2017 9:04am 06/29/2017 9:41am Globulin 4.3 g/dL H 2.3-3.5 06/29/2017 9:04am 06/29/2017 9:41am Albumin/Globulin Ratio 0.6 L 0.8-2.0 06/29/2017 9:04am 06/29/2017 9: 41am Alkaline Phosphatase 130 IU/L 40-150 06/29/2017 9:04am 06/29/2017 9: 41am Creatine Kinase 25 IU/L L 29-168 06/29/2017 9:04am 06/29/2017 9:41am Creatine Kinase MB 1.10 ng/mL 0-5.0 06/29/2017 9:04am 06/29/2017 9: 41am Troponin I 0.015 ng/mL 0-0.300 06/29/2017 9:04am 06/29/2017 9:41am Microbiology Results Procedure Source Organism/Result Collection Date/Time [...] Location Arrival/Admit Date Discharge/Depart Date Attending Provider Admitted Inpatient (obs) [facility] 06/29/17 11:45am TANYA AMBROCIO MD Departed Emergency Room [facility] 06/27/17 5:08pm 7:05pm FAITH DYSON MD Discharged Inpatient (obs) [facility] 02/24/17 7:41pm 10:00pm TANYA AMBROCIO MD
[2017-07-29] MEDS ORDERED: OMEPRAZOLE40 MG PO (11:14)
[2017-07-29] MEDS ORDERED: CEPHALEXIN500 MG PO (11:14)
[2017-07-29] MEDS ORDERED: JANUVIA100 MG PO (11:14)
[2017-07-29] MEDS ORDERED: FLUCONAZOLE100 MG PO (11:14)
[2017-07-29 11:32] LABS: BASOPHILS % 0.5 % (0.0-1.0); EOSINOPHILS # (AUTO) 0.2 (0.0-0.4); EOSINOPHILS % 2.4 % (0.0-6.0); HEMATOCRIT 31.1 % (34.2-44.1); HEMOGLOBIN 9.8 g/dL (12.0-16.0); LYMPHOCYTES # (AUTO) 1.4 (1.0-3.2); LYMPHOCYTES % 17.2 % (18.0-39.1); MEAN CORPUSCULAR HEMOGLOBIN 28.7 pg (28-32); MEAN CORPUSCULAR HGB CONC 31.5 g/dL (31-35); MEAN CORPUSCULAR VOLUME 91.2 fL (81-99); NEUTROPHILS # (AUTO) 5.5 (2.1-6.9); NEUTROPHILS % 67.3 % (38.7-80.0); PLATELET COUNT 289 x10e3/uL (140-360); RED BLOOD COUNT 3.41 x10e6/uL (3.6-5.1); RED CELL DISTRIBUTION WIDTH 15.8 % (11.7-14.4)
[2017-07-29] MEDS ORDERED: VANCOMYCIN 1GM/NS 250 ML 250 ML IV STA (11:41)
[2017-07-29 11:45] LABS: ALBUMIN 2.4 g/dL (3.5-5.0); ALBUMIN/GLOBULIN RATIO 0.6 (0.8-2.0); ANION GAP 14.4 mmol/L (8-16); CALCIUM 8.2 mg/dL (8.4-10.2); CREATININE, SERUM 2.49 mg/dL (0.57-1.11); POTASSIUM 4.4 mmol/L (3.5-5.1)
[2017-07-29] MEDS ORDERED: FUROSEMIDE INJ 10 MG/ML 4 ML VIAL IV ONE (11:45)
[2017-07-29 11:52] LABS: CREATINE KINASE MB 0.9 ng/mL (0-5.0)
[2017-07-29 11:56] LABS: B-TYPE NATRIURETIC PEPTIDE2 180.2 pg/mL (0-100)
[2017-07-29 12:25] LABS: BACTERIA,URINE MODERATE /HPF; BILIRUBIN,URINE NEGATIVE (NEGATIVE); CLARITY,URINE CLOUDY (CLEAR); COLOR,URINE YELLOW (YELLOW); EPITHELIAL CELLS,URINE FEW /LPF; KETONES,URINE NEGATIVE (NEGATIVE); LEUKOCYTE ESTERASE ,URINE 1+ (NEGATIVE); NITRITE,URINE NEGATIVE (NEGATIVE); PROTEIN,URINE DIPSTICK 3+ (NEGATIVE); RBC,URINE 0-5 /HPF (0-5); URINE UROBILINOGEN 1 mg/dL (0.2 - 1)
[2017-07-29 12:26] LABS: AMORPHOUS SEDIMENT,URINE MANY (FEW)
--- NOTE | 2017-07-29 13:23 | Diagnostic Imaging Report ---
PROCEDURE: A single AP view of the chest. COMPARISON: Patients [facility], CT, CT CHEST WO, 06/27/2017, 17:39. INDICATIONS: SWELLING LOWER LEGS, SHORTNESS OF BREATH FINDINGS: Lines/tubes: None. Lungs: The lungs are well inflated and grossly clear. There is no evidence of pneumonia or pulmonary edema. Pleura: There is no pleural effusion or pneumothorax. Heart and mediastinum: Stable cardiomegaly. Pulmonary vasculature is normal. Bones: No acute bony abnormality.. Stable degenerative changes and chronic deformity of the left proximal humerus. IMPRESSION: 1. stable cardiomegaly, without acute cardiopulmonary abnormalities.. Wood Rincon M.D. Dictated by: Wood Rincon M.D. on 07/29/2017 at 13:24 Electronically approved by: Wood Rincon M.D. on 07/29/2017 at 13:24
[2017-07-29] MEDS ORDERED: DEXTROSE 50% SYRINGE 50 ML IV PRN (14:30)
[2017-07-29] MEDS ORDERED: PROMETHAZINE 12.5MG/ NACL 0.9% 12.5 MG/50 ML BAG IV PRN (15:30)
[2017-07-29] MEDS ORDERED: MORPHINE SULFATE 2 MG/ML SYR IV PRN (15:30)
[2017-07-29] MEDS ORDERED: HYDROCODONE/APAP 10MG-325MG TAB PO PRN ×2 (16:15→16:30)
[2017-07-29 16:18] VITALS: BP 170/67
[2017-07-29 17:00] VITALS: BP 157/78
[2017-07-29] MEDS: INSULIN REGULAR, HUMAN 100 UNIT/1 ML 3ML VIAL SQ SCH ×2 (17:00→21:14)
[2017-07-29 19:49] LABS: CREATINE KINASE MB 0.7 ng/mL (0-5.0)
[2017-07-29 20:00] VITALS: BP 152/77
[2017-07-29] MEDS ORDERED: SODIUM CHLORIDE 0.9% 250ML 250 ML ONE (20:25)
[2017-07-29] MEDS: FUROSEMIDE INJ 10 MG/ML 4 ML VIAL IV SCH (20:30)
[2017-07-30] VITALS (7 sets, daily range): BP systolic 135–164; BP diastolic 66–73
[2017-07-30] MEDS: INSULIN REGULAR, HUMAN 100 UNIT/1 ML 3ML VIAL SQ SCH ×4 (07:30→21:00)
[2017-07-30 08:01] LABS: CREATINE KINASE MB 0.5 ng/mL (0-5.0)
[2017-07-30] MEDS: FUROSEMIDE INJ 10 MG/ML 4 ML VIAL IV SCH ×2 (08:56→21:20)
--- NOTE | 2017-07-30 16:37 | History and Physical ---
The patient is placed in observation. Observation date is July 30, 2017. CHIEF COMPLAINT: Increasing leg swelling and redness. PCP: Dr. Adama Almaraz. HISTORY: This 82-year-old female came in because both legs were swelling. Apparently she was drinking more water than she was supposed to. She did take her water pill. She came in because of leg swelling. She has some pain in bilateral legs. She is on Eliquis, and there is some redness between the ankle and the knee area. The swelling and the redness have significantly improved after receiving diuretic. The patient is stable at this time. PAST MEDICAL HISTORY: Includes: 1. Diastolic dysfunction congestive heart failure, which is stable. 2. Cardiac arrhythmia, atrial fibrillation, anticoagulant therapy. 3. Diabetes, type 2. 4. Hypertension. 5. Obesity. 6. Dependent edema of lower extremities. 7. Schatzki ring with previous biopsy. SOCIAL HISTORY: Patient does not smoke or use alcohol. No recreational drugs. HOME MEDICATIONS: List reviewed. ALLERGIES: NO KNOWN ALLERGIES. REVIEW OF SYSTEMS: As mentioned above. PHYSICAL EXAMINATION VITAL SIGNS: Temperature is 98. Blood pressure 135/66. Pulse rate 67. Respirations 18. GENERAL: The patient is not in acute distress. She is awake. HEENT: Normocephalic, atraumatic. Anicteric. NECK: Supple grossly. PULMONARY: Diminished breath sounds without any wheezing or rales. CARDIOVASCULAR: S1 and S2. Regular rate and rhythm. ABDOMEN: Soft, unremarkable. EXTREMITIES: Bilateral lower extremity edema, 1 to 2+, with some redness of bilateral lower extremities. No cyanosis. No abscess. NEUROLOGIC: No focal deficit. LABORATORY: Sodium is 139, potassium 4.4, chloride 101, bicarb 28, BUN 32, creatinine 2.5. Glucose is 170. BNP is only 180. Urinalysis shows 1+ leukocyte esterase. Moderate bacteria. WBC is 8.3. Hemoglobin 9.8. Hematocrit 31.7 and platelets 289. IMPRESSION 1. Dependent bilateral lower extremity edema. Increase in edema secondary to over-consumption of water. 2. Cellulitis of the lower extremities as mentioned. PLAN: Home medications resumed. IV Lasix. Increase oral Lasix when discharged. Will monitor the patient closely. Repeat lab work. Clindamycin 300 mg 3 times a day and doxycycline 100 mg twice a day. Patient should be discharged within 24 to 48 hours. Job#: [id number] MH
[2017-07-30] MEDS ORDERED: [UNRECOGNIZED DRUG - OTHER] PO SCH (17:00)
[2017-07-30] MEDS: AMIODARONE HCL 200 MG TAB PO SCH (17:24)
[2017-07-30] MEDS: DOXYCYCLINE HYCLATE TABLET 100 MG TAB PO SCH (17:24)
[2017-07-30] MEDS: APIXAB 2.5 MG TABLET PO SCH (17:24)
[2017-07-30] MEDS: CLINDAMYCIN HCL 150 MG CAP PO SCH ×2 (17:24→22:13)
[2017-07-30] MEDS: LACTOBACILLUS ACIDOPHILUS CAPSULE PO SCH ×2 (17:24→21:20)
[2017-07-30] MEDS ORDERED: VANCOMYCIN 1GM/NS 250 ML 250 ML IV SCH (18:00)
[2017-07-31] VITALS (7 sets, daily range): BP systolic 128–163; BP diastolic 50–69
[2017-07-31] MEDS: CLINDAMYCIN HCL 150 MG CAP PO SCH ×2 (05:37→14:13)
[2017-07-31] MEDS: INSULIN REGULAR, HUMAN 100 UNIT/1 ML 3ML VIAL SQ SCH ×3 (07:30→16:30)
[2017-07-31 07:37] LABS: BASOPHILS % 0.5 % (0.0-1.0); EOSINOPHILS # (AUTO) 0.2 (0.0-0.4); EOSINOPHILS % 2.7 % (0.0-6.0); HEMATOCRIT 27.7 % (34.2-44.1); HEMOGLOBIN 8.5 g/dL (12.0-16.0); LYMPHOCYTES # (AUTO) 1.1 (1.0-3.2); LYMPHOCYTES % 16.5 % (18.0-39.1); MEAN CORPUSCULAR HEMOGLOBIN 28.4 pg (28-32); MEAN CORPUSCULAR HGB CONC 30.7 g/dL (31-35); MEAN CORPUSCULAR VOLUME 92.6 fL (81-99); MONOCYTES # (AUTO) 0.8 (0.2-0.8); NEUTROPHILS # (AUTO) 4.4 (2.1-6.9); NEUTROPHILS % 67.8 % (38.7-80.0); PLATELET COUNT 195 x10e3/uL (140-360); RED BLOOD COUNT 2.99 x10e6/uL (3.6-5.1); RED CELL DISTRIBUTION WIDTH 15.9 % (11.7-14.4)
[2017-07-31 07:53] LABS: MAGNESIUM 1.6 MG/DL (1.3-2.1); PHOSPHORUS 3.8 MG/DL (2.3-4.7)
[2017-07-31 07:58] LABS: ANION GAP 10.7 mmol/L (8-16); CREATININE, SERUM 2.39 mg/dL (0.57-1.11); POTASSIUM 3.7 mmol/L (3.5-5.1)
[2017-07-31 08:16] LABS: THYROID STIMULATING HORMONE 4.845 uIU/mL (0.350-4.940)
[2017-07-31] MEDS ORDERED: COLLAGENASE OINTMENT 30 GM TUBE TP SCH (09:00)
[2017-07-31] MEDS ORDERED: DILTIAZEM HCL 120 MG CAP CD PO SCH (09:00)
[2017-07-31] MEDS ORDERED: SITAGLIPTIN 100 MG TAB PO SCH (09:00)
[2017-07-31] MEDS ORDERED: DILTIAZEM HCL 180 MG CAP CD PO SCH (09:00)
[2017-07-31] MEDS ORDERED: MUPIROCIN 2% OINT 22 GM TUBE TOP SCH (09:00)
[2017-07-31] MEDS: APIXAB 2.5 MG TABLET PO SCH ×2 (09:11→17:04)
[2017-07-31] MEDS: DOXYCYCLINE HYCLATE TABLET 100 MG TAB PO SCH ×2 (09:11→17:04)
[2017-07-31] MEDS: AMIODARONE HCL 200 MG TAB PO SCH ×2 (09:11→17:04)
[2017-07-31] MEDS: LACTOBACILLUS ACIDOPHILUS CAPSULE PO SCH ×2 (09:11→14:15)
[2017-07-31] MEDS: FUROSEMIDE INJ 10 MG/ML 4 ML VIAL IV SCH (09:11)
--- NOTE | 2017-07-31 15:39 | Discharge Summary ---
PCP: Dr. Adama Almaraz Patient in observation. FINAL DIAGNOSES 1. Bilateral lower extremity swelling secondary to over-consumption of water. 2. Right leg abrasion with some redness and early cellulitis, much improved. SUMMARY: An 82-year-old female with chronic kidney disease and bilateral lower extremity dependent edema. Patient does have provider care. Came in with bilateral lower extremity swelling. Apparently, she was most likely over-drinking of water with the same diuretic. The patient is stable. She was given IV Lasix. Leg swelling has significantly subsided. The redness has improved. The patient does have some abrasion on the right lower extremity. Antibiotic of clindamycin was given. The area is much improved. There is no sign of drainage. Dressing placed. The patient will have dressing changes every 1-2 days. Extra dressing given to the patient. The patient is stable. She already has provider care, and she will leave with her son. The patient may need home health. Discussed with the patient's PCP, Dr. Adama Almaraz. Advised the patient to see Dr. Almaraz on Wednesday, and may need home health orders. The patient is stable and discharged home today with the prescriptions given. Job#: [id number] AL
== END 2017-07-31 20:06 | disposition home or self-care (01) ==
LOC: ER 10:49 → ERHOLD 14:32 → INTOOBSV 14:32 → UNDOADMOB 14:32 → MED/SURG3 15:42 → ERHOLD 15:42 → MED/SURG3 07-30 16:06 → UNDODISOB 07-31 20:06
PROVIDERS: ADMIT Internal Medicine; ATTEND Internal Medicine
DX: L03.116 Cellulitis of left lower limb (principal); R60.0 Localized edema; L03.115 Cellulitis of right lower limb; I12.9 Hypertensive chronic kidney disease with stage 1 through stage 4 chronic kidney disease, or unspecified chronic kidney disease; E11.22 Type 2 diabetes mellitus with diabetic chronic kidney disease; N18.3 Chronic kidney disease, stage 3 (moderate); Z79.84 Long term (current) use of oral hypoglycemic drugs; E78.5 Hyperlipidemia, unspecified
CPT/HCPCS: 36415 ×3; 51700; 71045; 80048; 80053; 81001; 82550 ×2; 82553 ×2; 82607; 82948 ×3; 83036; 83605; 83735; 83880; 84100; 84443; 84484 ×2; 85025 ×2; 87040; 93005; 96372; 99284; G0378 ×2; J1940 ×3; J2270; J2550 ×2; J3370; J7050

== ENCOUNTER 2017-08-31 10:40 | Outpatient (RCR) | payer OTHER ==
[~2017-08-31 10:40] MED LIST changes: +CEPHALEXIN500 MG PO; +FLUCONAZOLE100 MG PO; +JANUVIA100 MG PO; +LIDOCAINE VISC 2% SOLN 15 ML UDC ONE; +MINERAL OIL/PETROLAT/GLYCERI 6OZ BTL ONE
[2017-08-31] MEDS ORDERED: LIDOCAINE/PRILOCAINE 2.5-2.5% KIT ONE (16:34)
== END 2017-09-09 ==
LOC: WCC 10:40
PROVIDERS: ATTEND Family Medicine Adult Medicine
DX: E11.65 Type 2 diabetes mellitus with hyperglycemia (principal); E11.8 Type 2 diabetes mellitus with unspecified complications; L89.612 Pressure ulcer of right heel, stage 2; L97.811 Non-pressure chronic ulcer of other part of right lower leg limited to breakdown of skin; I87.311 Chronic venous hypertension (idiopathic) with ulcer of right lower extremity; G89.29 Other chronic pain; I87.2 Venous insufficiency (chronic) (peripheral); R60.0 Localized edema; I79.8 Other disorders of arteries, arterioles and capillaries in diseases classified elsewhere; I10 Essential (primary) hypertension; E66.3 Overweight; E78.4 Other hyperlipidemia; I48.2 Chronic atrial fibrillation; I50.9 Heart failure, unspecified; M54.5 Low back pain; N18.3 Chronic kidney disease, stage 3 (moderate); R11.2 Nausea with vomiting, unspecified; Z74.01 Bed confinement status

== ENCOUNTER → 2017-09-02 | Outpatient (CLI) | payer OTHER ==
[~2017-09-02] MED LIST changes: -LIDOCAINE VISC 2% SOLN 15 ML UDC ONE; -MINERAL OIL/PETROLAT/GLYCERI 6OZ BTL ONE
== END ==
LOC: CARD 08:16
PROVIDERS: ATTEND Family Medicine Adult Medicine
CPT/HCPCS: 93922; 93925; 93970

== ENCOUNTER 2017-10-18 17:31 | Inpatient (IN) | payer OTHER ==
[~2017-10-18] VITALS: Ht 170.2 cm; Wt 93.2 kg
[2017-10-18 18:33] LABS: BASOPHILS % 0.4 % (0.0-1.0); EOSINOPHILS # (AUTO) 0.2 (0.0-0.4); EOSINOPHILS % 1.8 % (0.0-6.0); HEMATOCRIT 32.3 % (34.2-44.1); HEMOGLOBIN 10.3 g/dL (12.0-16.0); LYMPHOCYTES # (AUTO) 1.1 (1.0-3.2); MEAN CORPUSCULAR HEMOGLOBIN 28.5 pg (28-32); MEAN CORPUSCULAR HGB CONC 31.9 g/dL (31-35); MEAN CORPUSCULAR VOLUME 89.2 fL (81-99); MONOCYTES # (AUTO) 1.2 (0.2-0.8); NEUTROPHILS # (AUTO) 7.2 (2.1-6.9); NEUTROPHILS % 74.2 % (38.7-80.0); PLATELET COUNT 303 x10e3/uL (140-360); RED BLOOD COUNT 3.62 x10e6/uL (3.6-5.1); RED CELL DISTRIBUTION WIDTH 15.5 % (11.7-14.4)
[2017-10-18 18:41] LABS: INR 1.44; PROTHROMBIN TIME 16.5 seconds (11.9-14.5)
[2017-10-18 18:42] LABS: PARTIAL THROMBOPLASTIN TIME 28.3 seconds (23.8-35.5)
[2017-10-18 18:51] LABS: ALBUMIN 2.5 g/dL (3.5-5.0); ALBUMIN/GLOBULIN RATIO 0.5 (0.8-2.0); ANION GAP 15.8 mmol/L (8-16); CALCIUM 8.8 mg/dL (8.4-10.2); CREATININE, SERUM 2.22 mg/dL (0.57-1.11); POTASSIUM 3.8 mmol/L (3.5-5.1)
[2017-10-18 18:54] LABS: B-TYPE NATRIURETIC PEPTIDE2 247.3 pg/mL (0-100)
[2017-10-18 18:57] LABS: CREATINE KINASE MB 1.3 ng/mL (0-5.0)
[2017-10-18 18:59] LABS: BILIRUBIN,URINE NEGATIVE (NEGATIVE); CLARITY,URINE SL CLOUDY (CLEAR); COLOR,URINE YELLOW (YELLOW); KETONES,URINE NEGATIVE (NEGATIVE); LEUKOCYTE ESTERASE ,URINE TRACE (NEGATIVE); NITRITE,URINE NEGATIVE (NEGATIVE); PROTEIN,URINE DIPSTICK 1+ (NEGATIVE); URINE UROBILINOGEN 0.2 mg/dL (0.2 - 1)
[2017-10-18 19:10] LABS: BACTERIA,URINE MANY /HPF; WBC,URINE (MAN) 0-5 /HPF (0-5)
--- NOTE | 2017-10-18 19:19 | Diagnostic Imaging Report ---
FOOT RIGHT COMPLETE - 3 views HISTORY: Pain. Evaluate for osteomyelitis. COMPARISON: None available. FINDINGS: Bones: No acute displaced fracture. Osseous alignment is within normal limits. Calcaneal enthesophyte at the plantar fascia insertion. Diffuse osteopenia. Joints: The joint spaces are well-maintained. Soft tissues: Severe diffuse soft tissue swelling. IMPRESSION: 1. Severe diffuse soft tissue swelling. This can be seen in edema or cellulitis. 2. Diffuse osteopenia. No definite evidence of osteomyelitis. Signed by: Dr. Jordan Cash M.D. on 10/18/2017 7:15 PM
--- NOTE | 2017-10-18 19:20 | Diagnostic Imaging Report ---
FOOT LEFT COMPLETE - 3 views HISTORY: Pain. Evaluate for osteomyelitis. COMPARISON: None available. FINDINGS: Bones: No acute displaced fracture. Osseous alignment is within normal limits. Diffuse osteopenia. Posttraumatic changes of the first and second metatarsals. Joints: The joint spaces are well-maintained. Soft tissues: Severe diffuse soft tissue swelling. Mild vascular calcifications. IMPRESSION: Severe diffuse soft tissue swelling which can be seen in edema or cellulitis. Diffuse osteopenia. No definite evidence of osteomyelitis based on these views and foot positioning. Signed by: Dr. Jordan Cash M.D. on 10/18/2017 7:17 PM
[2017-10-18] MEDS ORDERED: AMIODARONE HCL200 MG PO (19:46)
[2017-10-18] MEDS ORDERED: PIPERACILLIN/TAZO 2.25 GM 50 ML IV ONE (20:00)
[2017-10-18] MEDS ORDERED: VANCOMYCIN 500MG/NS 0.9% 100ML 100 ML IV SCH (20:00)
[2017-10-18] MEDS ORDERED: MORPHINE SULFATE 2 MG/ML SYR IV PRN (20:00)
[2017-10-18] MEDS: ONDANSETRON HCL INJ 2 MG/ML VIAL IV PRN (20:17)
[2017-10-18] MEDS ORDERED: DEXTROSE 50% SYRINGE 50 ML IV PRN (21:00)
[2017-10-18 21:44] VITALS: BP 145/87
[2017-10-18] MEDS ORDERED: SODIUM CHLORIDE 0.9% 250ML 250 ML ONE (21:50)
[2017-10-18] MEDS: INSULIN REGULAR, HUMAN 100 UNIT/1 ML 3ML VIAL SQ SCH (22:10)
[2017-10-18] MEDS: VANCOMYCIN 500MG/NS 0.9% 100ML 100 ML IV SCH (22:10)
[2017-10-18 22:27] VITALS: BP 145/87
[2017-10-19] VITALS (7 sets, daily range): BP systolic 133–162; BP diastolic 56–68
[2017-10-19] MEDS: INSULIN REGULAR, HUMAN 100 UNIT/1 ML 3ML VIAL SQ SCH ×4 (07:30→21:00)
[2017-10-19] MEDS: VANCOMYCIN 500MG/NS 0.9% 100ML 100 ML IV SCH ×2 (08:47→22:00)
[2017-10-19] MEDS: ONDANSETRON HCL INJ 2 MG/ML VIAL IV PRN ×2 (11:15→16:37)
[2017-10-19] MEDS: FUROSEMIDE INJ 10 MG/ML 4 ML VIAL IV SCH ×2 (12:45→21:18)
[2017-10-19] MEDS: CEFEPIME HCL 1 GM VIAL IV SCH ×2 (13:30→21:18)
[2017-10-19] MEDS ORDERED: DIATRIZOATE MEGL/DIATRIZOA SOD 30 ML BTL PO ONE (15:09)
[2017-10-19] MEDS ORDERED: [UNRECOGNIZED DRUG - OTHER] PO SCH (17:00)
--- NOTE | 2017-10-19 19:57 | Diagnostic Imaging Report ---
EXAM: CT Abdomen and Pelvis WITHOUT contrast INDICATION: \S\abdominal pain. Cellulitis. Renal failure. COMPARISON: CT abdomen and pelvis 02/24/2017. TECHNIQUE: Abdomen and pelvis were scanned utilizing a multidetector helical scanner from the lung base to the pubic symphysis without administration of IV contrast. Absence of intravenous contrast decreases sensitivity for detection of focal lesions and vascular pathology. Coronal and sagittal reformations were obtained. Routine protocol was performed. IV CONTRAST: None ORAL CONTRAST: Gastrografin COMPLICATIONS: None RADIATION DOSE: Total DLP: 786.8 mGy*cm Estimated effective dose: (DLP x 0.015 x size factor) mSv CTDIvol has been reviewed. It is below the limits set by the Radiation Protocol Committee (RPC). FINDINGS: LINES and TUBES: None. LOWER THORAX: Tiny bilateral pleural effusions with associated atelectasis. Scattered calcified granulomas in both lower lobes. Mitral valve calcifications. Small sliding hiatal hernia, which is unchanged. HEPATOBILIARY: 1.0 cm cyst in the left hepatic lobe (series 2 image 10), unchanged. No biliary ductal dilation. GALLBLADDER: There is layering sludge in the gallbladder No wall thickening. SPLEEN: No splenomegaly. PANCREAS: No focal masses or ductal dilatation. ADRENALS: No adrenal nodules KIDNEYS/URETERS: Kidneys are atrophic. No hydronephrosis. No cystic or solid mass lesions. No stones. GI TRACT: No abnormal distention, wall thickening, or evidence of bowel obstruction. There are a few scattered diverticula within the colon without evidence of diverticulitis. Appendix is not visualized. PELVIC ORGANS/BLADDER: Status post hysterectomy. Cherry catheter or on a decompressed bladder. Extensive air within the bladder wall without significant surrounding inflammatory changes. Mild pelvic floor prolapse. LYMPH NODES: No lymphadenopathy. VESSELS: There is moderate atherosclerotic disease in the aorta and major arterial branches. PERITONEUM / RETROPERITONEUM: No free air or fluid. BONES: Degenerative changes of the lower thoracic spine. 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 Slight anterolisthesis of L4 in relation to L5 1 without spondylolysis. Right femoral intramedullary yolanda and intertrochanteric interlocking screw. SOFT TISSUES: Small fat-containing umbilical hernia. IMPRESSION: 1. Emphysematous cystitis. Correlate for possible superimposed infection versus diabetes. 2. Atrophic kidneys, unchanged. 3. Unchanged gallbladder sludge without evidence of acute cholecystitis. 4. Unchanged small sliding hiatal hernia and tiny bilateral pleural effusions. Signed by: Dr. Jordan Cash M.D. on 10/19/2017 7:54 PM
--- NOTE | 2017-10-19 21:06 | Consultation ---
DATE OF CONSULTATION: October 19, 2017 REQUESTING PHYSICIAN: Dr. Sandoval REASON FOR CONSULT: CHF. HISTORY OF PRESENTING ILLNESS: Ms. Mixon is 82-year-old lady with past medical history as listed below, apparently has been experiencing some swelling of her legs and redness of her legs, the right more than left. She follows up with wound care and they advised her to get to the hospital for worsening cellulitis. She was admitted with cellulitis and CHF. Her BNP is slightly elevated. She has a history of CHF. Patient also has some shortness of breath, which she says is chronic, but recently has gotten a little worse. REVIEW OF SYMPTOMS: CONSTITUTIONAL: Has fatigue and weakness. HEENT: No headache, blurring of vision, seizures, syncope. CARDIOVASCULAR: No chest pain. Has some dyspnea. Has leg edema. No orthopnea, PND. RESPIRATORY: No cough, fever, expectoration. GI: No abdominal pain, vomiting, diarrhea. : No dysuria, frequency, incontinence. ALLERGIES: NO KNOWN DRUG ALLERGIES. MEDICATIONS: See list. PAST MEDICAL HISTORY: 1. History of hypertension. 2. History of atrial fibrillation. 3. History of CHF. 4. History of diabetes mellitus. 5. History of chronic kidney disease. SOCIAL HISTORY: Does not smoke or drink. FAMILY HISTORY: Noncontributory. PHYSICAL EXAMINATION: GENERAL: Obese lady, alert, oriented, not in any obvious distress. VITAL SIGNS: Heart rate is 86, blood pressure is 118/70, respiratory rate is 16. HEENT: Atraumatic. NECK: No JVD, bruit, thyromegaly, or lymphadenopathy. CARDIOVASCULAR: First and second heart sounds heard. No murmurs, rubs, or gallops appreciated. CHEST: Decreased air entry at the bases. No adventitious sounds appreciated. ABDOMEN: Soft, nontender. EXTREMITIES: Both lower extremities are dressed, has 1+ edema. LABS: X-ray of right foot, no fracture. X-ray of left foot, no fracture. No air in soft tissue. BNP is 247. Hemoglobin is 10.3, hematocrit 32.3. BUN is 39, creatinine is 2.2. AST is 47, ALT is 57. UA shows many bacteria. IMPRESSION: 1. Cellulitis of lower extremities. 2. Congestive heart failure. 3. Atrial fibrillation. 4. Hypertension. 5. Diabetes mellitus. PLAN: 1. Continue with antibiotics. 2. Patient's heart rate is under control. 3. Patient has been on apixaban, can continue the same. 4. Start her on diuretics. 5. Get echocardiogram to assess LV function and valvular function. 6. Further cardiac workup depending on clinical course. 7. I have discussed my impression and plan of management with patient. Patient has been counseled on diet, salt restriction, activity. As always, I appreciate and thank you very much for referrals. Job#: [id number]
[2017-10-19] MEDS: APIXAB 2.5 MG TABLET PO SCH (21:18)
[2017-10-20] VITALS (7 sets, daily range): BP systolic 138–167; BP diastolic 57–70
[2017-10-20 04:51] LABS: BASOPHILS % 0.6 % (0.0-1.0); EOSINOPHILS # (AUTO) 0.2 (0.0-0.4); EOSINOPHILS % 2.9 % (0.0-6.0); HEMATOCRIT 26.4 % (34.2-44.1); HEMOGLOBIN 8.2 g/dL (12.0-16.0); LYMPHOCYTES # (AUTO) 0.9 (1.0-3.2); LYMPHOCYTES % 11.8 % (18.0-39.1); MEAN CORPUSCULAR HEMOGLOBIN 28.2 pg (28-32); MEAN CORPUSCULAR HGB CONC 31.1 g/dL (31-35); MEAN CORPUSCULAR VOLUME 90.7 fL (81-99); MONOCYTES # (AUTO) 0.9 (0.2-0.8); MONOCYTES % 12.4 % (4.4-11.3); NEUTROPHILS # (AUTO) 5.2 (2.1-6.9); PLATELET COUNT 249 x10e3/uL (140-360); RED BLOOD COUNT 2.91 x10e6/uL (3.6-5.1); RED CELL DISTRIBUTION WIDTH 15.5 % (11.7-14.4)
[2017-10-20 05:11] LABS: ANION GAP 9.9 mmol/L (8-16); CREATININE, SERUM 2.05 mg/dL (0.57-1.11); POTASSIUM 3.9 mmol/L (3.5-5.1)
[2017-10-20 06:10] LABS: THYROID STIMULATING HORMONE 4.914 uIU/mL (0.350-4.940)
[2017-10-20] MEDS: INSULIN REGULAR, HUMAN 100 UNIT/1 ML 3ML VIAL SQ SCH ×4 (07:30→22:01)
[2017-10-20] MEDS: CEFEPIME HCL 1 GM VIAL IV SCH (09:15)
[2017-10-20] MEDS: MUPIROCIN 2% OINT 22 GM TUBE TOP SCH (09:15)
[2017-10-20] MEDS: COLLAGENASE OINTMENT 30 GM TUBE TP SCH (09:15)
[2017-10-20] MEDS: VANCOMYCIN 500MG/NS 0.9% 100ML 100 ML IV SCH (09:15)
[2017-10-20] MEDS: AMIODARONE HCL 200 MG TAB PO SCH (09:15)
[2017-10-20] MEDS: BALSAM PERU/CASTOR OIL 60 GM OINT...G. TP SCH (09:15)
[2017-10-20] MEDS: PANTOPRAZOLE SOD 40 MG TABEC PO SCH (09:15)
[2017-10-20] MEDS: FUROSEMIDE INJ 10 MG/ML 4 ML VIAL IV SCH ×2 (09:15→21:51)
[2017-10-20] MEDS: APIXAB 2.5 MG TABLET PO SCH ×2 (09:15→21:51)
[2017-10-20] MEDS ORDERED: MEROPENEM 500MG 500 MG in SODIUM CHLORIDE 0.9% 50ML 50 ML IV SCH (14:00)
[2017-10-20] MEDS: MEROPENEM 500 MG VIAL IV SCH ×2 (15:12→22:01)
[2017-10-20] MEDS: ONDANSETRON HCL INJ 2 MG/ML VIAL IV PRN (18:38)
[2017-10-21 01:13] VITALS: BP 158/65
[2017-10-21] MEDS: MEROPENEM 500 MG VIAL IV SCH ×3 (05:12→22:02)
[2017-10-21] MEDS: INSULIN REGULAR, HUMAN 100 UNIT/1 ML 3ML VIAL SQ SCH ×4 (07:30→20:51)
[2017-10-21 08:00] VITALS: BP 157/66
[2017-10-21 08:45] VITALS: BP 157/66
[2017-10-21] MEDS: AMIODARONE HCL 200 MG TAB PO SCH (09:11)
[2017-10-21] MEDS: PANTOPRAZOLE SOD 40 MG TABEC PO SCH (09:11)
[2017-10-21] MEDS: FUROSEMIDE INJ 10 MG/ML 4 ML VIAL IV SCH ×2 (09:11→20:51)
[2017-10-21] MEDS: APIXAB 2.5 MG TABLET PO SCH ×2 (09:12→20:51)
[2017-10-21] MEDS: MUPIROCIN 2% OINT 22 GM TUBE TOP SCH (09:12)
[2017-10-21] MEDS: BALSAM PERU/CASTOR OIL 60 GM OINT...G. TP SCH (09:12)
[2017-10-21] MEDS: COLLAGENASE OINTMENT 30 GM TUBE TP SCH (09:12)
[2017-10-21 12:00] VITALS: BP 157/66
[2017-10-21 16:00] VITALS: BP 171/67
[2017-10-21] MEDS ORDERED: MORPHINE SULFATE INJ 4 MG/ML INJ IV PRN (16:45)
[2017-10-21 20:45] VITALS: BP 145/65
[2017-10-22] MEDS: MEROPENEM 500 MG VIAL IV SCH ×3 (06:13→21:21)
[2017-10-22] MEDS: PANTOPRAZOLE SOD 40 MG TABEC PO SCH (07:30)
[2017-10-22] MEDS: INSULIN REGULAR, HUMAN 100 UNIT/1 ML 3ML VIAL SQ SCH ×4 (07:30→21:00)
[2017-10-22 08:00] VITALS: BP 161/62
[2017-10-22] MEDS: ONDANSETRON HCL INJ 2 MG/ML VIAL IV PRN ×2 (08:56→15:06)
[2017-10-22] MEDS: MUPIROCIN 2% OINT 22 GM TUBE TOP SCH (09:00)
[2017-10-22] MEDS: COLLAGENASE OINTMENT 30 GM TUBE TP SCH (09:00)
[2017-10-22] MEDS: AMIODARONE HCL 200 MG TAB PO SCH (09:00)
[2017-10-22] MEDS: APIXAB 2.5 MG TABLET PO SCH ×2 (09:00→21:20)
[2017-10-22] MEDS: BALSAM PERU/CASTOR OIL 60 GM OINT...G. TP SCH (09:00)
[2017-10-22] MEDS: FUROSEMIDE INJ 10 MG/ML 4 ML VIAL IV SCH ×2 (09:00→21:20)
[2017-10-22 10:39] LABS: BASOPHILS # (AUTO) 0.1 (0.0-0.1); BASOPHILS % 0.7 % (0.0-1.0); EOSINOPHILS # (AUTO) 0.2 (0.0-0.4); EOSINOPHILS % 2.5 % (0.0-6.0); HEMATOCRIT 28.1 % (34.2-44.1); HEMOGLOBIN 8.7 g/dL (12.0-16.0); LYMPHOCYTES # (AUTO) 1.1 (1.0-3.2); MEAN CORPUSCULAR HEMOGLOBIN 28.2 pg (28-32); MEAN CORPUSCULAR VOLUME 90.9 fL (81-99); MONOCYTES # (AUTO) 0.8 (0.2-0.8); MONOCYTES % 10.4 % (4.4-11.3); NEUTROPHILS # (AUTO) 5.5 (2.1-6.9); NEUTROPHILS % 71.9 % (38.7-80.0); PLATELET COUNT 301 x10e3/uL (140-360); RED BLOOD COUNT 3.09 x10e6/uL (3.6-5.1); RED CELL DISTRIBUTION WIDTH 15.5 % (11.7-14.4)
[2017-10-22 10:41] LABS: ANION GAP 11.5 mmol/L (8-16); CALCIUM 8.1 mg/dL (8.4-10.2); CREATININE, SERUM 2.08 mg/dL (0.57-1.11); POTASSIUM 3.5 mmol/L (3.5-5.1)
[2017-10-22 12:00] VITALS: BP 143/62
--- NOTE | 2017-10-22 14:57 | History and Physical ---
PRIMARY CARE PHYSICIAN: Dr. Adama Almaraz CHIEF COMPLAINT: Bilateral lower extremity swelling and infection. HISTORY: This is an 82-year-old female, baseline debility with ambulatory dysfunction. Apparently, she also has diastolic dysfunction, congestive heart failure and also cardiac arrhythmia, atrial fibrillation, anticoagulant therapy, presented to the hospital with bilateral lower extremity swelling and with redness to the lower extremity. She has also had stage II decubitus ulcer. The patient is admitted for further evaluation. She is placed on vancomycin IV antibiotic. Her lower extremity is 2 to 3+ edema. Cherry catheter placed. Lasix given. The patient is otherwise stable at this time. PAST MEDICAL HISTORY: Diastolic dysfunction, congestive heart failure. Obesity with lymphedema, bilateral lower extremity with venous stasis, skin changes and now ulceration. Hypertension. History of Schatzki ring that was previously biopsied. Atrial fibrillation, anticoagulant therapy with Eliquis. PAST SURGICAL HISTORY: Noncontributory. SOCIAL HISTORY: Patient lives at home with her family. She does not smoke or use alcohol. No regular drugs. ALLERGIES: NO KNOWN ALLERGIES. HOME MEDICATIONS: List reviewed. REVIEW OF SYSTEMS: As above. PHYSICAL EXAMINATION VITAL SIGNS: Temperature is 98. Blood pressure 119/72. Pulse rate 83. Respirations 18. GENERAL: The patient is not in acute distress. She is awake. HEENT: Normocephalic, atraumatic, anicteric. NECK: Supple grossly. No JVD. PULMONARY: Diminished breath sounds without any wheezing or rales. CARDIOVASCULAR: S1, S2. Irregularly irregular, rate controlled. ABDOMEN: Soft, obese. EXTREMITIES: 2 to 3+ edema. Dependent edema bilateral lower extremity. Chronic venous stasis skin changes now infected bilateral lower extremity. Sacral decubitus ulcer per nursing and wound evaluation. NEUROLOGIC: The patient basically nonambulatory. She is very weak in general. LABORATORY: WBC 9.6, hemoglobin 10.3, hematocrit 32.3 and platelets is 303. Chemistry: Sodium is 137, potassium 3.8, chloride 103, bicarb 22, BUN 39, creatinine 2.2, glucose is 149. Albumin is 2.5. BNP is 247, AST is 47, ALT 57, alkaline phos of 122. Cardiac enzymes negative, 0.133. Glucose is 108. Urinalysis: Trace leukocyte esterase with many bacteria, 1+ protein, 1+ blood, negative nitrite. Coagulation is otherwise unremarkable. IMPRESSION 1. Bilateral lower extremity cellulitis. 2. Chronic venous stasis ulcer with infection of lower extremities. 3. Sacral decubitus ulcer secondary to be debility. 4. Atrial fibrillation, baseline on anticoagulant therapy. 5. [id number] exacerbation of diastolic dysfunction congestive heart failure. 6. Morbid obesity. 7. Multiple chronic baseline problems. PLAN: Continue with antibiotics. Add on cefepime 1 gram q.12. Continue with vancomycin. Check vancomycin trough level. Consultation with Dr. Genaro Camp for heart failure. Consultation with Dr. Loo for wound care. PT, OT. Turn the patient q.2 hours. Cherry care. Aspiration precautions. Job#: [id number] JOSUE
[2017-10-22 16:00] VITALS: BP 166/70
[2017-10-22 19:19] VITALS: BP 134/70
[2017-10-22 23:35] VITALS: BP 119/55
[2017-10-23] VITALS (7 sets, daily range): BP systolic 128–168; BP diastolic 55–73
[2017-10-23 04:49] LABS: BASOPHILS # (AUTO) 0.1 (0.0-0.1); BASOPHILS % 0.7 % (0.0-1.0); EOSINOPHILS # (AUTO) 0.2 (0.0-0.4); HEMOGLOBIN 9.2 g/dL (12.0-16.0); LYMPHOCYTES # (AUTO) 1.2 (1.0-3.2); LYMPHOCYTES % 15.7 % (18.0-39.1); MEAN CORPUSCULAR HEMOGLOBIN 28.4 pg (28-32); MEAN CORPUSCULAR HGB CONC 31.7 g/dL (31-35); MEAN CORPUSCULAR VOLUME 89.5 fL (81-99); MONOCYTES # (AUTO) 0.9 (0.2-0.8); MONOCYTES % 12.4 % (4.4-11.3); NEUTROPHILS # (AUTO) 5.1 (2.1-6.9); NEUTROPHILS % 66.9 % (38.7-80.0); PLATELET COUNT 314 x10e3/uL (140-360); RED BLOOD COUNT 3.24 x10e6/uL (3.6-5.1); RED CELL DISTRIBUTION WIDTH 15.6 % (11.7-14.4)
[2017-10-23 05:14] LABS: ANION GAP 12.9 mmol/L (8-16); CALCIUM 8.2 mg/dL (8.4-10.2); CREATININE, SERUM 2.13 mg/dL (0.57-1.11); POTASSIUM 3.9 mmol/L (3.5-5.1)
[2017-10-23] MEDS: MEROPENEM 500 MG VIAL IV SCH ×3 (05:27→22:24)
[2017-10-23] MEDS: INSULIN REGULAR, HUMAN 100 UNIT/1 ML 3ML VIAL SQ SCH ×4 (07:30→21:00)
[2017-10-23] MEDS: APIXAB 2.5 MG TABLET PO SCH ×2 (09:20→20:54)
[2017-10-23] MEDS: AMIODARONE HCL 200 MG TAB PO SCH (09:20)
[2017-10-23] MEDS: PANTOPRAZOLE SOD 40 MG TABEC PO SCH (09:20)
[2017-10-23] MEDS: FUROSEMIDE INJ 10 MG/ML 4 ML VIAL IV SCH ×2 (09:20→20:54)
[2017-10-23] MEDS: COLLAGENASE OINTMENT 30 GM TUBE TP SCH (09:21)
[2017-10-23] MEDS: BALSAM PERU/CASTOR OIL 60 GM OINT...G. TP SCH (09:21)
[2017-10-23] MEDS: MUPIROCIN 2% OINT 22 GM TUBE TOP SCH (09:21)
[2017-10-23] MEDS: ONDANSETRON HCL INJ 2 MG/ML VIAL IV PRN (11:37)
[2017-10-23] MEDS: HYDROCODONE/APAP 5MG-325MG TAB PO PRN ×2 (11:37→20:50)
[2017-10-23] MEDS ORDERED: AMLODIPINE BESYLATE 5 MG TAB PO ONE (13:00)
[2017-10-24] VITALS (8 sets, daily range): BP systolic 130–196; BP diastolic 62–81
[2017-10-24 04:49] LABS: BASOPHILS # (AUTO) 0.1 (0.0-0.1); BASOPHILS % 0.7 % (0.0-1.0); EOSINOPHILS # (AUTO) 0.3 (0.0-0.4); EOSINOPHILS % 4.1 % (0.0-6.0); HEMATOCRIT 29.5 % (34.2-44.1); HEMOGLOBIN 9.3 g/dL (12.0-16.0); LYMPHOCYTES # (AUTO) 1.5 (1.0-3.2); LYMPHOCYTES % 18.3 % (18.0-39.1); MEAN CORPUSCULAR HEMOGLOBIN 28.2 pg (28-32); MEAN CORPUSCULAR HGB CONC 31.5 g/dL (31-35); MEAN CORPUSCULAR VOLUME 89.4 fL (81-99); MONOCYTES % 12.4 % (4.4-11.3); NEUTROPHILS # (AUTO) 5.3 (2.1-6.9); PLATELET COUNT 329 x10e3/uL (140-360); RED CELL DISTRIBUTION WIDTH 15.5 % (11.7-14.4)
[2017-10-24 05:05] LABS: ANION GAP 12.1 mmol/L (8-16); CALCIUM 8.1 mg/dL (8.4-10.2); CREATININE, SERUM 2.27 mg/dL (0.57-1.11); POTASSIUM 4.1 mmol/L (3.5-5.1)
[2017-10-24] MEDS: MEROPENEM 500 MG VIAL IV SCH ×3 (05:23→21:44)
[2017-10-24] MEDS: PANTOPRAZOLE SOD 40 MG TABEC PO SCH (07:30)
[2017-10-24] MEDS: INSULIN REGULAR, HUMAN 100 UNIT/1 ML 3ML VIAL SQ SCH ×4 (07:30→21:43)
[2017-10-24] MEDS ORDERED: AMLODIPINE BESYLATE 5 MG TAB PO SCH (09:00)
[2017-10-24] MEDS: AMIODARONE HCL 200 MG TAB PO SCH (09:08)
[2017-10-24] MEDS: FUROSEMIDE INJ 10 MG/ML 4 ML VIAL IV SCH (09:08)
[2017-10-24] MEDS: BALSAM PERU/CASTOR OIL 60 GM OINT...G. TP SCH (09:08)
[2017-10-24] MEDS: APIXAB 2.5 MG TABLET PO SCH ×2 (09:08→21:43)
[2017-10-24] MEDS: COLLAGENASE OINTMENT 30 GM TUBE TP SCH (09:08)
[2017-10-24] MEDS: MUPIROCIN 2% OINT 22 GM TUBE TOP SCH (09:08)
[2017-10-24] MEDS: HYDROCODONE/APAP 5MG-325MG TAB PO PRN ×2 (10:05→14:25)
[2017-10-24] MEDS ORDERED: NIFEDIPINE CR 30 MG TAB PO SCH (12:00)
[2017-10-24] MEDS: ONDANSETRON HCL INJ 2 MG/ML VIAL IV PRN (14:07)
[2017-10-25] VITALS (8 sets, daily range): BP systolic 140–168; BP diastolic 63–75
[2017-10-25] MEDS: MEROPENEM 500 MG VIAL IV SCH ×3 (06:21→22:00)
[2017-10-25] MEDS: INSULIN REGULAR, HUMAN 100 UNIT/1 ML 3ML VIAL SQ SCH ×4 (07:30→21:00)
[2017-10-25] MEDS: PANTOPRAZOLE SOD 40 MG TABEC PO SCH (08:34)
[2017-10-25] MEDS: APIXAB 2.5 MG TABLET PO SCH ×2 (08:37→22:00)
[2017-10-25] MEDS: AMIODARONE HCL 200 MG TAB PO SCH (08:37)
[2017-10-25] MEDS: NIFEDIPINE CR 30 MG TAB PO SCH (08:38)
[2017-10-25] MEDS ORDERED: ONDANSETRON HCL 4 MG ORAL DISINTEGRATING TAB PO PRN (09:00)
[2017-10-25] MEDS ORDERED: FUROSEMIDE INJ 10 MG/ML 4 ML VIAL IV SCH (09:00)
[2017-10-25] MEDS: MUPIROCIN 2% OINT 22 GM TUBE TOP SCH (09:00)
[2017-10-25] MEDS: FUROSEMIDE 40 MG TAB PO SCH (09:00)
[2017-10-25] MEDS: COLLAGENASE OINTMENT 30 GM TUBE TP SCH (09:01)
[2017-10-25] MEDS: BALSAM PERU/CASTOR OIL 60 GM OINT...G. TP SCH (09:01)
[2017-10-25 09:25] LABS: BASOPHILS # (AUTO) 0.1 (0.0-0.1); BASOPHILS % 0.7 % (0.0-1.0); EOSINOPHILS # (AUTO) 0.2 (0.0-0.4); EOSINOPHILS % 2.3 % (0.0-6.0); HEMATOCRIT 31.7 % (34.2-44.1); HEMOGLOBIN 9.9 g/dL (12.0-16.0); LYMPHOCYTES % 10.3 % (18.0-39.1); MEAN CORPUSCULAR HEMOGLOBIN 27.9 pg (28-32); MEAN CORPUSCULAR HGB CONC 31.2 g/dL (31-35); MEAN CORPUSCULAR VOLUME 89.3 fL (81-99); MONOCYTES % 10.7 % (4.4-11.3); NEUTROPHILS # (AUTO) 6.9 (2.1-6.9); NEUTROPHILS % 75.3 % (38.7-80.0); PLATELET COUNT 370 x10e3/uL (140-360); RED BLOOD COUNT 3.55 x10e6/uL (3.6-5.1); RED CELL DISTRIBUTION WIDTH 15.4 % (11.7-14.4)
[2017-10-25 09:43] LABS: ANION GAP 13.2 mmol/L (8-16); CREATININE, SERUM 2.22 mg/dL (0.57-1.11); POTASSIUM 4.2 mmol/L (3.5-5.1)
[2017-10-25] MEDS: METOCLOPRAMIDE HCL 10 MG TAB PO SCH (15:34)
[2017-10-26] VITALS: BP 152/67
[2017-10-26 04:00] VITALS: BP 156/67
[2017-10-26] MEDS: MEROPENEM 500 MG VIAL IV SCH ×2 (06:10→17:24)
[2017-10-26 08:00] VITALS: BP 129/60
[2017-10-26] MEDS: AMIODARONE HCL 200 MG TAB PO SCH (10:08)
[2017-10-26] MEDS: METOCLOPRAMIDE HCL 10 MG TAB PO SCH ×3 (10:08→17:20)
[2017-10-26] MEDS: FUROSEMIDE 40 MG TAB PO SCH (10:08)
[2017-10-26] MEDS: PANTOPRAZOLE SOD 40 MG TABEC PO SCH (10:08)
[2017-10-26] MEDS: APIXAB 2.5 MG TABLET PO SCH (10:08)
[2017-10-26] MEDS: COLLAGENASE OINTMENT 30 GM TUBE TP SCH (10:09)
[2017-10-26] MEDS: NIFEDIPINE CR 30 MG TAB PO SCH (10:09)
[2017-10-26] MEDS: BALSAM PERU/CASTOR OIL 60 GM OINT...G. TP SCH (10:09)
[2017-10-26] MEDS: MUPIROCIN 2% OINT 22 GM TUBE TOP SCH (10:09)
[2017-10-26] MEDS: INSULIN REGULAR, HUMAN 100 UNIT/1 ML 3ML VIAL SQ SCH ×3 (10:10→16:30)
[2017-10-26 12:00] VITALS: BP 148/67
[2017-10-26 16:00] VITALS: BP 149/67
[2017-10-26 20:00] VITALS: BP 141/83
--- NOTE | 2017-10-27 02:02 | Discharge Summary ---
PCP: Dr. Adama Ridley CONSULTANTS: 1. Dr. Loo 2. Dr. Genaro Camp FINAL DIAGNOSES: 1. Bilateral lower extremity cellulitis associated with venous stasis ulcer chronically. 2. Sacral decubitus ulcer secondary to medical debility, please review wound care note. 3. Baseline atrial fibrillation, on anticoagulant therapy with Eliquis. 4. [id number] exacerbation of diastolic dysfunction congestive heart failure, good ejection fraction of 60%. 5. Urinary tract infection with extended-spectrum beta-lactamase multi-resistant bacteria. 6. Baseline obesity with multiple chronic baseline problems. SUMMARY: Patient is an 82-year-old female, came in with increasing shortness of breath, fluid overload, lower extremity edema. This patient also has chronic venous stasis ulcer, bilateral lower extremity that increased in redness and infection. Patient received wound care, IV antibiotics. Urinalysis was also obtained showing that she had urinary tract infection, and subsequently as documented ESBL infection. Because of multiple infection area, the patient placed on meropenem for which she tolerated well. She is also given diuretic for diuresing of the lower extremity edema. She did better. The wound care team has seen the patient. Wound compression treatment is done. Her wound has improved. The infection has significantly subsided. Patient also has baseline atrial fibrillation, she is on Eliquis 2.5 mg twice a day. She seems to tolerate it well. Patient is stable at this time. Because of her overall condition, medical debility, and extensive chronic multiple medical problems, the patient is going to skilled facility. Arrangement has been made and approval of insurance and medication reconciliation is done. Patient will continue IV antibiotic meropenem twice a day for 7 days. Continue with wound care. Continue with home medication. Medication reconciliation is done. She will continue with oral furosemide and potassium replacement as well. Overall, the patient is stable. She does have chronic kidney disease. Baseline BUN and creatinine are approximately 30 to 2.2 to 2.5. Patient is stable and discharged today. Medication reconciliation is done. Job#: [id number] cc:ADAMA RIDLEY MD
== END 2017-10-26 20:15 | DRG 291 ==
LOC: ER 17:31 → ERHOLD 21:24 → MED/SURG2 21:29
PROVIDERS: ADMIT Internal Medicine; ATTEND Internal Medicine
DX: I13.0 Hypertensive heart and chronic kidney disease with heart failure and stage 1 through stage 4 chronic kidney disease, or unspecified chronic kidney disease (principal); I50.33 Acute on chronic diastolic (congestive) heart failure; L03.116 Cellulitis of left lower limb; I83.209 Varicose veins of unspecified lower extremity with both ulcer of unspecified site and inflammation; L97.919 Non-pressure chronic ulcer of unspecified part of right lower leg with unspecified severity; L97.929 Non-pressure chronic ulcer of unspecified part of left lower leg with unspecified severity; N39.0 Urinary tract infection, site not specified; L03.115 Cellulitis of right lower limb; L89.152 Pressure ulcer of sacral region, stage 2; I48.91 Unspecified atrial fibrillation; E11.22 Type 2 diabetes mellitus with diabetic chronic kidney disease; N18.3 Chronic kidney disease, stage 3 (moderate); Z83.3 Family history of diabetes mellitus; Z82.49 Family history of ischemic heart disease and other diseases of the circulatory system; R53.81 Other malaise; E66.01 Morbid (severe) obesity due to excess calories; E66.9 Obesity, unspecified; Z68.35 Body mass index [BMI] 35.0-35.9, adult; I48.0 Paroxysmal atrial fibrillation; B96.20 Unspecified Escherichia coli [E. coli] as the cause of diseases classified elsewhere; Z16.12 Extended spectrum beta lactamase (ESBL) resistance
CPT/HCPCS: 36415; 51700; 74176; 80048; 80053; 80202; 81001; 82550; 82553; 82948; 83036; 83605; 83880; 84443; 84484; 85025; 85610; 85730; 87040; 87086; 87186; 93005; 93306; 93925; 96372; 97139; 99284; J0692; J1940; J2185; J2270; J2405; J2543; J3370; J7050